=== PATIENT | male | born 1955 | race Caucasian/White ===

== ENCOUNTER 2023-04-09 09:30 | Day surgery (SDC) | payer OTHER, SELFPAY ==
--- NOTE | 2023-04-08 12:24 | P.CONAN_ITS ---
Documented by User: Zoila Yeager NP 04/08/23 12:26 HPI - Anesthesia Eval Consult details Narrative: 67yo M for Colonoscopy [facility] Past Medical History Medical History (Updated 04/08/23 @ 12:26 by Zoila Yeager NP) Diabetes Fatty liver GERD (gastroesophageal reflux disease) Hearing loss Helicobacter pylori gastritis HLD (hyperlipidemia) HTN (hypertension) Hypothyroid DELILAH (obstructive sleep apnea) Spinal stenosis Splenic artery aneurysm Surgical History Surgical History (Updated 04/08/23 @ 12:26 by Zoila Yeager NP) Hx of esophagogastroduodenoscopy (~2018) Hx of tonsillectomy (~1969) Meds Allergies Allergy/AdvReac Type Severity Reaction Status Date / Time Penicillins [PENICILLINS] Allergy Unknown UNKNOWN Unverified 08/04/20 18:37 Home Medications Medication Instructions Recorded Confirmed Last Taken Type Zocor 20 mg DAILY 04/08/23 04/08/23 Unknown History levothyroxine 88 mcg tablet mcg 04/08/23 Unknown History lisinopril 20 mg tablet 20 mg PO DAILY 04/08/23 04/08/23 Unknown History metformin 500 mg tablet 250 mg BID 04/08/23 04/08/23 Unknown History Exam Exam Date and Time: April 08, 2023 1224 Assessment and Plan Assessment Anesthesia Assessment: Chart Reviewed Documented by User: Francis Perez MD 04/09/23 09:21 [facility] Past Medical History Medical History (Updated 04/08/23 @ 12:26 by Zoila Yeager NP) Diabetes Fatty liver GERD (gastroesophageal reflux disease) Hearing loss Helicobacter pylori gastritis HLD (hyperlipidemia) HTN (hypertension) Hypothyroid DELILAH (obstructive sleep apnea) Spinal stenosis Splenic artery aneurysm Family History Family history of problems with anesthesia: No Surgical History Surgical History (Updated 04/08/23 @ 12:26 by Zoila Yeager NP) Hx of esophagogastroduodenoscopy (~2018) Hx of tonsillectomy (~1969) History of Problems with Anesthesia: No Meds Allergies Allergy/AdvReac Type Severity Reaction Status Date / Time Penicillins [PENICILLINS] Allergy Unknown UNKNOWN Unverified 08/04/20 18:37 Home Medications Medication Instructions Recorded Confirmed Last Taken Type Zocor 20 mg DAILY 04/08/23 04/08/23 Unknown History levothyroxine 88 mcg tablet mcg 04/08/23 Unknown History lisinopril 20 mg tablet 20 mg PO DAILY 04/08/23 04/08/23 Unknown History metformin 500 mg tablet 250 mg BID 04/08/23 04/08/23 Unknown History Exam Airway Mallampati Class: III TM Dist: >3cm Neck ROM: Limited Heart: rrr Lungs: cta Assessment and Plan Assessment Anesthesia Assessment: Anesthesia Plan Discussed Final Anesthetic Review Family History of Problems with Anesthesia: No History of Problems with Anesthesia: No NPO: Yes ASA Class: III Final Preanesthetic Review: No Changes in Pt Med Stat, Meds/Allgs Chart Reviewed, Consent Obtained/Reviewed and Anes Risks/Benef Reviewed Patient Risk: Intermediate Procedure Risk: Low Anesthetic Plan Anesthetic Plan: MAC: and Agree w/ Assess. and Plan Disposition: Standard PACU
[2023-04-09 10:08] VITALS: BMI 27.0
[2023-04-09 10:24] VITALS: BP 168/114; PULSE 74; RESP 18; TEMP 36.6; O2SAT 96
[2023-04-09 10:42] LABS: Glucose, Whole Blood 130 mg/dL (60-115)
--- NOTE | 2023-04-09 10:51 | PC.NURSE ---
Dr. Perez updated that patient reported that he does not take any of the blood pressure or diabetic medications as prescribed [facility]. [facility] states working with [facility] to find affordable [facility] Dr. Perez updated regarding BP results. Okay to proceed. Patient had vaso-vag response to IV insertion. Post VS 112/74 P 56. Has recovered well.
--- NOTE | 2023-04-09 11:16 | MHC.SHP ---
Pre-Procedural Eval Section A Date of Service: 04/09/23 The patient is an INPATIENT: No Changes since office visit: No Cold of Flu in the past 2 weeks, No New Medical Problems, No Changes in Medication and No Patient answered all questions The History & Physical has been completed within 30 days and I have reviewed it.: Yes Section B Chief Complaint: Encounter for screening for malignant neoplasm Allergies: Allergies Allergy/AdvReac Type Severity Reaction Status Date / Time Penicillins [PENICILLINS] Allergy Unknown UNKNOWN Verified 04/09/23 10:09 Plan I have reviewed the history and physical and performed a pertinent physical examination on my patient. No changes have occurred unless specified. Time Spent With Patient Time: Total time managing care of this patient today ____ minutes.
--- NOTE | 2023-04-09 11:52 | PM.OP ---
Brief Operative Note Date of Service: 04/09/23 Pre-op diagnosis: screening Post-op diagnosis: same Procedure: colonoscopy Surgeon: Mansoor Hwang Anesthesia: MAC Was an Quality Control Lead used for this Procedure?: No Estimated blood loss (mL): 0 Pathology: other Condition: stable Disposition: PACU
[2023-04-09 11:59] VITALS: BP 130/86; PULSE 75; RESP 16; TEMP 36.1; O2SAT 96
--- NOTE | 2023-04-09 12:11 | OP_ITS ---
DATE OF SERVICE: 04/09/2023 SURGEON: Mansoor Hwang MD INDICATIONS: Colon cancer screening and personal history of colon polyps. PREOPERATIVE DIAGNOSIS: POSTOPERATIVE DIAGNOSIS: PROCEDURE PERFORMED: Colonoscopy to the terminal ileum with snare polypectomy and Idania ink injection. ESTIMATED BLOOD LOSS: COMPLICATIONS: ANESTHESIA: Monitored anesthesia care. ASSISTANTS: SPECIMENS: DESCRIPTION OF PROCEDURE: A history and physical was performed. The risks and benefits of the procedure were explained to the patient. Informed consent was obtained. The patient was placed in the left lateral decubitus position. A digital rectal exam was performed and was found to be normal. The Olympus pediatric video colonoscope was introduced into the rectum and advanced to the cecum without difficulty. The cecum was identified by transillumination, palpation, and identification of ileocecal valve,. Examination was performed. The scope was removed. He tolerated the procedure well and was returned to the recovery area in stable condition. FINDINGS: The terminal ileum was normal. The visualized colonic mucosa was normal. The quality of the prep was good. At 20 cm was an 8 mm polyp, which was removed with a hot snare and recovered via suction. At 15 cm was a 12 mm pedunculated polyp, which was removed with a hot snare and recovered via suction. The base of the polyp was marked with a total of 3 cc of Idania ink injected via a scleral therapy needle. Retroflexed examination showed some small internal hemorrhoids. There was mild sigmoid diverticulosis. IMPRESSION: Colon polyps. RECOMMENDATION: Follow up the biopsy results. MD RED Shelby/EMELIA / [id number]
[2023-04-09 12:14] VITALS: BP 137/96; PULSE 78; RESP 16; TEMP 36.1; O2SAT 97
== END 2023-04-09 12:54 | disposition home or self-care (01) ==
PROVIDERS: PCP Physician Assistant Medical; Visit Provider Internal Medicine Gastroenterology
PROC: 0DJD8ZZ Inspection of Lower Intestinal Tract, Via Natural or Artificial Opening Endoscopic (ICD-10-PCS; CPT 45378; principal; 2023-04-09 10:10)
DX: Z12.11 Encounter for screening for malignant neoplasm of colon (principal); Z86.010 Personal history of colon polyps; D12.5 Benign neoplasm of sigmoid colon; D12.7 Benign neoplasm of rectosigmoid junction; K57.30 Diverticulosis of large intestine without perforation or abscess without bleeding; K64.8 Other hemorrhoids; K21.9 Gastro-esophageal reflux disease without esophagitis; I10 Essential (primary) hypertension; E78.5 Hyperlipidemia, unspecified; E11.9 Type 2 diabetes mellitus without complications; E03.9 Hypothyroidism, unspecified; G47.33 Obstructive sleep apnea (adult) (pediatric); H91.90 Unspecified hearing loss, unspecified ear; I72.8 Aneurysm of other specified arteries; R31.9 Hematuria, unspecified; K76.0 Fatty (change of) liver, not elsewhere classified; M48.00 Spinal stenosis, site unspecified; Z87.891 Personal history of nicotine dependence
CPT/HCPCS: 45385; 45381; 82947; 88305

== ENCOUNTER 2023-08-23 08:20 | Inpatient (IN) | payer OTHER, SELFPAY ==
[2023-08-23] VITALS (16 sets, daily range): BP systolic 118–171; BP diastolic 80–109; PULSE 111–135; RESP 16–23; TEMP 36.3–36.9; O2SAT 92–98; BMI 28.5; BMI 24.1
--- NOTE | 2023-08-23 08:34 | ED.GENADULT ---
HPI - General Adult General Chief complaint: General Medical Stated complaint: Vomiting Weak Time Seen by Provider: 08/23/23 08:33 Source: patient and family (patient's ) Mode of arrival: ambulatory Limitations: no limitations History of Present Illness HPI narrative: Patient is a 67 year old assigned male at with a history of diabetes and HTN presenting to the emergency department today with feeling generally unwell. Patient states that for the last 4 days he has felt unwell with nausea, vomiting, and frequent urination. Patient's states that the patient does not take any of his diabetes medication and does not check his sugar. Patient denies any dizziness, lightheadedness, abdominal pain, fever, chills, blurry vision, double vision, loss of vision, chest pain, difficulty breathing, shortness of breath, back pain, night sweats, pain with urination, blood in his urine or stool, syncope or a near syncopal episode, recent trauma or falls, bowel incontinence, bladder incontinence, bowel retention, bladder retention, or any other complaints at this time. Onset (ago): day(s) (4) Severity: moderate Severity scale (1-10): 6 Relieving factors: none Exacerbating factors: none Associated symptoms: nausea/vomiting and weakness Treatments prior to arrival: none Related Data Home Medications Medication Instructions Recorded Confirmed Zocor 20 mg DAILY 04/08/23 04/08/23 levothyroxine 88 mcg tablet mcg 04/08/23 lisinopril 20 mg tablet 20 mg PO DAILY 04/08/23 04/08/23 metformin 500 mg tablet 250 mg BID 04/08/23 04/08/23 Allergies Allergy/AdvReac Type Severity Reaction Status Date / Time Penicillins [PENICILLINS] Allergy Unknown UNKNOWN Verified 04/09/23 10:09 Review of Systems Constitutional: Constitutional: Reports no additional constitutional complaints, Denies chills, Denies fever(s), Denies night sweats and Reports weakness Eyes: Eyes: Reports no additional eye complaints, Denies blurry vision, Denies change in vision, Denies diplopia, Denies eye discharge, Denies loss of vision and Denies eye pain ENT: Denies dizziness Cardiovascular: Cardiovascular: Reports no additional cardiovascular complaints, Denies chest pain, Denies lightheadedness, Denies Loss of Consciousness and Denies dyspnea Respiratory: Respiratory: Reports no additional respiratory complaints and Denies dyspnea Gastrointestinal: Gastrointestinal: Reports no additional gastrointestinal complaints, Denies abdominal pain, Denies melena, Denies hematochezia, Denies change in bowel habits, Denies change in stool character, Reports nausea and Reports vomiting Genitourinary: Genitourinary: Reports no additional male genitourinary complaints, Denies hematuria, Denies oliguria, Denies difficulty urinating, Denies dysuria, Reports urinary frequency, Denies urinary hesitancy, Denies urinary incontinence and Reports urinary urgency Musculoskeletal: Musculoskeletal: Reports no additional musculoskeletal complaints, Denies numbness and Denies tingling Neurologic: Denies dizziness, Denies loss of vision, Denies numbness, Denies tingling and Reports weakness Psychiatric: Psychiatric: Reports no additional psychiatric complaints Endocrine: Endocrine: Reports no additional endocrine complaints Hematologic/Lymphatic: Hematologic/Lymphatic: Reports no additional hematologic/lymphatic complaints Allergic/Immunologic: Allergic/Immunologic: Reports no additional allergic/immunologic complaints PMFSH Past Medical History Attestation statement: The following information was validated with the patient. (all information validated with the patient's ) Source: old records reviewed, obtained from family (patient's provided additional history and confirmed the history provided by the patient.) and nursing notes reviewed Medical History Splenic artery aneurysm Spinal stenosis DELILAH (obstructive sleep apnea) Hearing loss Fatty liver Hypothyroid Diabetes HLD (hyperlipidemia) HTN (hypertension) Helicobacter pylori gastritis GERD (gastroesophageal reflux disease) Surgical History Hx of tonsillectomy (~1970) Hx of esophagogastroduodenoscopy (~2019) Social History Social History Alcohol intake: current Alcohol intake frequency: a few times a month Patient Tobacco Use Status: Former Tobacco user Smoked in Last 30 Days: No Use of substances other than those prescribed or required for medical reasons: Yes Substance Use Type: Marijuana Substance Use Frequency: Occasionally Last Used Substance: Weeks (ago) Advance Directives: No Physical Exam ED Vital Signs: Vital Signs - 24 hr 08/23/23 08:25 08/23/23 08:45 08/23/23 11:13 Temperature 97.3 F 97.7 F 98.4 F Pulse Rate 135 H 125 H 126 H Respiratory Rate 18 20 20 Blood Pressure 159/109 H 171/108 H 136/87 Pulse Oximetry 96 96 Oxygen Delivery Method Room Air Room Air Room Air 08/23/23 12:06 Temperature Pulse Rate 127 H Respiratory Rate 23 H Blood Pressure 147/93 H Pulse Oximetry 97 Oxygen Delivery Method Room Air BMI result Body Mass Index 28.5 Const General: cooperative, no acute distress, alert and awake Nutritional Appearance: well nourished Orientation/consciousness: patient oriented x3 Limitations: no limitations HENMT Head: Yes normal to inspection and Yes atraumatic Ears: hearing grossly normal bilaterally and external ears normal General nose exam: Normal external nose present, no nasal discharge noted and no epistaxis Face and sinus: Yes normal facial exam, No abrasion and No laceration Mouth: Normal oral and palatal mucosa present, no drooling and no muffled voice Eyes General: appearance normal, both eyes and all related structures Periorbital: periorbital findings normal Eyelids: Yes eyelids normal Conjunctivae: conjunctivae normal Pupils: Equal, round and reactive pupils present EOM: EOMs intact bilaterally Neck Neck: Yes normal visual inspection, Yes full ROM and Yes no lymphadenopathy Chest Chest palpation & inspection: normal inspection of the chest Resp Effort & Inspection: normal respiratory effort and able to speak in complete sentences Auscultation: clear to auscultation bilaterally Cardio Rate: tachycardic Rhythm: regular rhythm GI Inspection: Yes normal to inspection Neuro General: patient oriented x3 and moves all extremities Cranial nerves: Yes Equal, round and reactive pupils present Cognition (Neuro): normal cognition Motor exam (neuro): 5/5 motor strength present throughout Sensory Exam: Normal double simultaneous stimulation for sensation Coordination: [id number] test normal Extrem General: Yes normal to inspection, Yes full ROM and Yes capillary refill normal Psych Appearance: grossly normal Mental Status: mental status grossly normal Affect: normal affect Attitude: cooperative Thought process: Normal thought process present Thought content: Normal thought content present Insight: Good insight present (Psych) Medications Administered Generic Name Dose Route Start Last Admin Trade Name Freq PRN Reason Stop Dose Admin Insulin Human Regular 100 unit in 100 mls @ 9 mls/hr 08/23/23 10:15 08/23/23 12:45 Myxredlin IVCONT 3 unit/hr .Q11H7M LEIGH 3 mls/hr Titration Protocol 9 UNIT/HR Sodium Chloride 1,000 mls @ 150 mls/hr 08/23/23 13:00 08/23/23 13:08 Ns IVCONT 150 mls/hr .Q6H40M LEIGH Administration Discontinued Medications Generic Name Dose Route Start Last Admin Trade Name Jill PRN Reason Stop Dose Admin Sodium Chloride 1,000 mls @ 999 mls/hr 08/23/23 08:45 08/23/23 11:55 Ns IV 08/23/23 09:45 Infused .Q1H1M LEIGH Infusion Sodium Chloride 1,000 mls @ 999 mls/hr 08/23/23 08:45 08/23/23 11:56 Ns IV 08/23/23 09:45 Infused .Q1H1M LEIGH Infusion Ondansetron HCl 4 mg 08/23/23 08:34 08/23/23 09:17 Ondansetron Hcl 4 Mg/2 Ml Vial IVPUSH 08/23/23 08:35 4 mg ONCE ONE Administration Medical Decision Making Medical Decision Making MDM Narrative: Patient is a 67 year old assigned male at with a history of DM and HTN presenting to the emergency department today with nausea, vomiting, increased urinary frequency, and feeling generally unwell. Patient's physical exam was as noted in the physical exam portion of this note. Patient's blood work showed a sodium of 128 (adjusted for elevated glucose - 156), potassium of 5.2, anion gap of 39, BUN of 52, CR of 2.66, glucose of 1264, lactic acid of 3.4, magnesium of 3.2, and ALT of 44. Patient's urine showed no acute process. Patient's chest x-ray showed no acute process. Patient's clinical presentation is most consistent with DKA. Patient's clinical presentation is not consistent with sepsis (@1100). Patient was given 2L of NS and started on an insulin drip. I spoke with the papeterie table assembler who agreed to admission. I explained my physical exam findings as well as all test results to the patient and the patient's . I answered all questions asked by the patient and the patient's . Patient and the patient's verbalized agreement and understanding with this treatment plan and admission. Differential Diagnosis Differential Diagnoses: The differential diagnosis associated with the presentation includes DKA Hyperglycemia Hypernatremia Hyperkalemia Admission/Observation Consideration of admission/observation: Escalation of care including admission/observation considered Patient admitted to the ICU. Consult Healthcare Provider Management of the patient was discussed with: Brass Bobbin Winder (spoke with the papeterie table assembler as noted in the MDM Rationale portion of this note.) Lab Data [facility] Lab Attestation statement: I reviewed the patient's lab results. My interpretation of these results are in the MDM Rationale portion of this note. 08/23/23 09:02 08/23/23 12:03 Labs: Lab Results 08/23/23 08/23/23 08/23/23 Range/Units 09:02 09:20 09:41 WBC 10.1 (4.8-10.8) X10*3/uL RBC 5.49 (4.60-5.80) X10*6/uL Hgb 16.9 (14.0-18.0) g/dl Hct 51.4 (42.0-52.0) % MCV 93.6 (80.0-98.0) fL MCH 30.8 (27.0-33.0) pg MCHC 32.9 (31.0-36.0) g/dl RDW 12.9 (11.0-16.0) % Plt Count 297 (160-400) X10*3/uL MPV 11.9 (9.4-12.4) fL Immature Gran % (Auto) 0.5 H (0.0-0.4) % Neut % (Auto) 87.9 H (45-73) % Lymph % (Auto) 8.5 L (20-40) % [place] % (Auto) 2.9 (2-11) % Eos % (Auto) 0.0 (0-4) % Baso % (Auto) 0.2 (0-2) % Lymph # (Auto) 0.9 L (1.2-4.9) X10*3/uL [place] # (Auto) 0.3 (0.1-1.2) X10*3/uL Eos # (Auto) 0.0 (0.0-0.4) X10*3/uL Baso # (Auto) 0.0 (0.0-0.2) X10*3/uL Abs Immat Gran (auto) 0.05 H (0.00-0.03) X10*3/uL Absolute Neuts (auto) 8.9 H (2.0-8.3) x10*3/uL Absolute Nucleated RBC 0.000 (0.0-0.012) X10*3/uL Nucleated RBC % (auto) 0.0 (0.0-0.2) /100WBC PT 11.1 (11.1-13.3) SEC INR 0.9 (0.9-1.1) APTT 22.2 L (26.0-36.4) SEC VBG pH (7.32-7.43) VBG pCO2 mmHg VBG pO2 mmHg VBG HCO3 (22-26) mmol/L VBG O2 Saturation % VBG Base Excess mmol/L Sodium 128 L (135-145) mmol/L Potassium 5.2 H (3.3-5.1) mmol/L Chloride 83 L (96-108) mmol/L Carbon Dioxide 11 L (22-29) mmol/L Anion Gap 39 H (12-20) BUN 52 H (9-16) mg/dL Creatinine 2.66 H (0.5-1.4) mg/dL Estim Creat Clear Calc 33.1 Estimated GFR 24 POC Glucose (60-115) mg/dL Random Glucose 1264 H* (60-115) mg/dL Lactic Acid 3.4 H* (0.5-2.0) mmol/L Lactic Acid F/U @ 2Hr (0.5-2.0) mmol/L Calcium 10.4 H (8.4-10.2) mg/dL Magnesium 3.2 H (1.6-2.6) mg/dL Total Bilirubin 0.8 (0.0-1.0) mg/dL AST 17 (5-37) U/L ALT 44 H (0-40) U/L Alkaline Phosphatase 84 (39-117) U/L Ammonia 48 (13-55) umol/L Troponin I High Sens 3.3 (<3.5-35.0) ng/L Total Protein 9.3 H (6.5-8.0) g/dL Albumin 4.7 (3.5-5.0) g/dL Urine Color Yellow Urine Appearance Clear Urine pH 5.0 (5.0-9.0) Ur Specific [place] >= 1.030 H (1.005-1.025) Urine Protein Negative (Neg-Trace) mg/dL Urine Glucose (UA) >=1000 H (Negative) mg/dL Urine Ketones 40 (Negative) mg/dL Urine Blood Small (1+) H (Negative) Urine Nitrite Negative (Negative) Ur Leukocyte Esterase Negative (Negative) Urine RBC 0-2 (0-2) /HPF Urine WBC 0-5 (0-5) /HPF Ur Squamous Epith Cells 0-2 (0-2) /HPF Urine Bacteria None Seen (None Seen) Hyaline Casts 3-5 (0-2) /LPF Urine Opiates Screen (Not Detect) Urine Fentanyl Screen (Not Detect) Ur Barbiturates Screen (Not Detect) Ur Phencyclidine Scrn (Not Detect) Ur Amphetamines Screen (Not Detect) U Benzodiazepines Scrn (Not Detect) Urine Cocaine Screen (Not Detect) U Marijuana (THC) Screen (Not Detect) Influenza Type A (PCR) NEGATIVE (Negative) Influenza Type B (PCR) NEGATIVE (Negative) RSV RNA Qual (PCR) NEGATIVE (Negative) SARS-CoV-2 RNA (RT-PCR) NEGATIVE (Negative) S. pyogenes GrpA CHERYL Negative (Negative) 08/23/23 08/23/23 08/23/23 Range/Units 09:48 10:22 10:25 WBC (4.8-10.8) X10*3/uL RBC (4.60-5.80) X10*6/uL Hgb (14.0-18.0) g/dl Hct (42.0-52.0) % MCV (80.0-98.0) fL MCH (27.0-33.0) pg MCHC (31.0-36.0) g/dl RDW (11.0-16.0) % Plt Count (160-400) X10*3/uL MPV (9.4-12.4) fL Immature Gran % (Auto) (0.0-0.4) % Neut % (Auto) (45-73) % Lymph % (Auto) (20-40) % [place] % (Auto) (2-11) % Eos % (Auto) (0-4) % Baso % (Auto) (0-2) % Lymph # (Auto) (1.2-4.9) X10*3/uL [place] # (Auto) (0.1-1.2) X10*3/uL Eos # (Auto) (0.0-0.4) X10*3/uL Baso # (Auto) (0.0-0.2) X10*3/uL Abs Immat Gran (auto) (0.00-0.03) X10*3/uL Absolute Neuts (auto) (2.0-8.3) x10*3/uL Absolute Nucleated RBC (0.0-0.012) X10*3/uL Nucleated RBC % (auto) (0.0-0.2) /100WBC PT (11.1-13.3) SEC INR (0.9-1.1) APTT (26.0-36.4) SEC VBG pH 7.23 L (7.32-7.43) VBG pCO2 20 mmHg VBG pO2 103 mmHg VBG HCO3 9 L (22-26) mmol/L VBG O2 Saturation 99.0 % VBG Base Excess -15.6 mmol/L Sodium (135-145) mmol/L Potassium (3.3-5.1) mmol/L Chloride (96-108) mmol/L Carbon Dioxide (22-29) mmol/L Anion Gap (12-20) BUN (9-16) mg/dL Creatinine (0.5-1.4) mg/dL Estim Creat Clear Calc Estimated GFR POC Glucose > 600 H* > 600 H* (60-115) mg/dL Random Glucose (60-115) mg/dL Lactic Acid (0.5-2.0) mmol/L Lactic Acid F/U @ 2Hr (0.5-2.0) mmol/L Calcium (8.4-10.2) mg/dL Magnesium (1.6-2.6) mg/dL Total Bilirubin (0.0-1.0) mg/dL AST (5-37) U/L ALT (0-40) U/L Alkaline Phosphatase (39-117) U/L Ammonia (13-55) umol/L Troponin I High Sens (<3.5-35.0) ng/L Total Protein (6.5-8.0) g/dL Albumin (3.5-5.0) g/dL Urine Color Urine Appearance Urine pH (5.0-9.0) Ur Specific [place] (1.005-1.025) Urine Protein (Neg-Trace) mg/dL Urine Glucose (UA) (Negative) mg/dL Urine Ketones (Negative) mg/dL Urine Blood (Negative) Urine Nitrite (Negative) Ur Leukocyte Esterase (Negative) Urine RBC (0-2) /HPF Urine WBC (0-5) /HPF Ur Squamous Epith Cells (0-2) /HPF Urine Bacteria (None Seen) Hyaline Casts (0-2) /LPF Urine Opiates Screen (Not Detect) Urine Fentanyl Screen (Not Detect) Ur Barbiturates Screen (Not Detect) Ur Phencyclidine Scrn (Not Detect) Ur Amphetamines Screen (Not Detect) U Benzodiazepines Scrn (Not Detect) Urine Cocaine Screen (Not Detect) U Marijuana (THC) Screen (Not Detect) Influenza Type A (PCR) (Negative) Influenza Type B (PCR) (Negative) RSV RNA Qual (PCR) (Negative) SARS-CoV-2 RNA (RT-PCR) (Negative) S. pyogenes GrpA CHERYL (Negative) 08/23/23 08/23/23 08/23/23 Range/Units 11:14 11:30 11:32 WBC (4.8-10.8) X10*3/uL RBC (4.60-5.80) X10*6/uL Hgb (14.0-18.0) g/dl Hct (42.0-52.0) % MCV (80.0-98.0) fL MCH (27.0-33.0) pg MCHC (31.0-36.0) g/dl RDW (11.0-16.0) % Plt Count (160-400) X10*3/uL MPV (9.4-12.4) fL Immature Gran % (Auto) (0.0-0.4) % Neut % (Auto) (45-73) % Lymph % (Auto) (20-40) % [place] % (Auto) (2-11) % Eos % (Auto) (0-4) % Baso % (Auto) (0-2) % Lymph # (Auto) (1.2-4.9) X10*3/uL [place] # (Auto) (0.1-1.2) X10*3/uL Eos # (Auto) (0.0-0.4) X10*3/uL Baso # (Auto) (0.0-0.2) X10*3/uL Abs Immat Gran (auto) (0.00-0.03) X10*3/uL Absolute Neuts (auto) (2.0-8.3) x10*3/uL Absolute Nucleated RBC (0.0-0.012) X10*3/uL Nucleated RBC % (auto) (0.0-0.2) /100WBC PT (11.1-13.3) SEC INR (0.9-1.1) APTT (26.0-36.4) SEC VBG pH (7.32-7.43) VBG pCO2 mmHg VBG pO2 mmHg VBG HCO3 (22-26) mmol/L VBG O2 Saturation % VBG Base Excess mmol/L Sodium (135-145) mmol/L Potassium (3.3-5.1) mmol/L Chloride (96-108) mmol/L Carbon Dioxide (22-29) mmol/L Anion Gap (12-20) BUN (9-16) mg/dL Creatinine (0.5-1.4) mg/dL Estim Creat Clear Calc Estimated GFR POC Glucose > 600 H* > 600 H* (60-115) mg/dL Random Glucose (60-115) mg/dL Lactic Acid (0.5-2.0) mmol/L Lactic Acid F/U @ 2Hr (0.5-2.0) mmol/L Calcium (8.4-10.2) mg/dL Magnesium (1.6-2.6) mg/dL Total Bilirubin (0.0-1.0) mg/dL AST (5-37) U/L ALT (0-40) U/L Alkaline Phosphatase (39-117) U/L Ammonia (13-55) umol/L Troponin I High Sens (<3.5-35.0) ng/L Total Protein (6.5-8.0) g/dL Albumin (3.5-5.0) g/dL Urine Color Urine Appearance Urine pH (5.0-9.0) Ur Specific [place] (1.005-1.025) Urine Protein (Neg-Trace) mg/dL Urine Glucose (UA) (Negative) mg/dL Urine Ketones (Negative) mg/dL Urine Blood (Negative) Urine Nitrite (Negative) Ur Leukocyte Esterase (Negative) Urine RBC (0-2) /HPF Urine WBC (0-5) /HPF Ur Squamous Epith Cells (0-2) /HPF Urine Bacteria (None Seen) Hyaline Casts (0-2) /LPF Urine Opiates Screen Not Detected (Not Detect) Urine Fentanyl Screen Not Detected (Not Detect) Ur Barbiturates Screen Not Detected (Not Detect) Ur Phencyclidine Scrn Not Detected (Not Detect) Ur Amphetamines Screen Not Detected (Not Detect) U Benzodiazepines Scrn Not Detected (Not Detect) Urine Cocaine Screen Not Detected (Not Detect) U Marijuana (THC) Screen POSITIVE H (Not Detect) Influenza Type A (PCR) (Negative) Influenza Type B (PCR) (Negative) RSV RNA Qual (PCR) (Negative) SARS-CoV-2 RNA (RT-PCR) (Negative) S. pyogenes GrpA CHERYL (Negative) 08/23/23 08/23/23 Range/Units 11:40 12:03 WBC (4.8-10.8) X10*3/uL RBC (4.60-5.80) X10*6/uL Hgb (14.0-18.0) g/dl Hct (42.0-52.0) % MCV (80.0-98.0) fL MCH (27.0-33.0) pg MCHC (31.0-36.0) g/dl RDW (11.0-16.0) % Plt Count (160-400) X10*3/uL MPV (9.4-12.4) fL Immature Gran % (Auto) (0.0-0.4) % Neut % (Auto) (45-73) % Lymph % (Auto) (20-40) % [place] % (Auto) (2-11) % Eos % (Auto) (0-4) % Baso % (Auto) (0-2) % Lymph # (Auto) (1.2-4.9) X10*3/uL [place] # (Auto) (0.1-1.2) X10*3/uL Eos # (Auto) (0.0-0.4) X10*3/uL Baso # (Auto) (0.0-0.2) X10*3/uL Abs Immat Gran (auto) (0.00-0.03) X10*3/uL Absolute Neuts (auto) (2.0-8.3) x10*3/uL Absolute Nucleated RBC (0.0-0.012) X10*3/uL Nucleated RBC % (auto) (0.0-0.2) /100WBC PT (11.1-13.3) SEC INR (0.9-1.1) APTT (26.0-36.4) SEC VBG pH (7.32-7.43) VBG pCO2 mmHg VBG pO2 mmHg VBG HCO3 (22-26) mmol/L VBG O2 Saturation % VBG Base Excess mmol/L Sodium 135 (135-145) mmol/L Potassium 4.3 (3.3-5.1) mmol/L Chloride 96 (96-108) mmol/L Carbon Dioxide 11 L (22-29) mmol/L Anion Gap 32 H (12-20) BUN 51 H (9-16) mg/dL Creatinine 2.34 H (0.5-1.4) mg/dL Estim Creat Clear Calc 37.6 Estimated GFR 28 POC Glucose (60-115) mg/dL Random Glucose 933 H* (60-115) mg/dL Lactic Acid (0.5-2.0) mmol/L Lactic Acid F/U @ 2Hr 2.0 (0.5-2.0) mmol/L Calcium 9.4 D (8.4-10.2) mg/dL Magnesium (1.6-2.6) mg/dL Total Bilirubin (0.0-1.0) mg/dL AST (5-37) U/L ALT (0-40) U/L Alkaline Phosphatase (39-117) U/L Ammonia (13-55) umol/L Troponin I High Sens (<3.5-35.0) ng/L Total Protein (6.5-8.0) g/dL Albumin (3.5-5.0) g/dL Urine Color Urine Appearance Urine pH (5.0-9.0) Ur Specific [place] (1.005-1.025) Urine Protein (Neg-Trace) mg/dL Urine Glucose (UA) (Negative) mg/dL Urine Ketones (Negative) mg/dL Urine Blood (Negative) Urine Nitrite (Negative) Ur Leukocyte Esterase (Negative) Urine RBC (0-2) /HPF Urine WBC (0-5) /HPF Ur Squamous Epith Cells (0-2) /HPF Urine Bacteria (None Seen) Hyaline Casts (0-2) /LPF Urine Opiates Screen (Not Detect) Urine Fentanyl Screen (Not Detect) Ur Barbiturates Screen (Not Detect) Ur Phencyclidine Scrn (Not Detect) Ur Amphetamines Screen (Not Detect) U Benzodiazepines Scrn (Not Detect) Urine Cocaine Screen (Not Detect) U Marijuana (THC) Screen (Not Detect) Influenza Type A (PCR) (Negative) Influenza Type B (PCR) (Negative) RSV RNA Qual (PCR) (Negative) SARS-CoV-2 RNA (RT-PCR) (Negative) S. pyogenes GrpA CHERYL (Negative) Independent Interpretation I performed an independent interpretation of an: Plain X-Ray Interpretation: My interpretation is in agreement with the radiologist's impression of this imaging study. EXAMINATION: XR CHEST CLINICAL INFORMATION: Cough, weakness COMPARISON: None available. TECHNIQUE: 2 views of the chest were obtained. FINDINGS: No airspace consolidation or vascular congestion observed. Minimal linear atelectatic changes observed near the costophrenic angles. No distinct pleural effusions seen. The hilar regions are unremarkable. Thoracic spondylosis and degenerative disc space narrowing observed. XR/XR chest 2V IMPRESSION: No consolidation or congestion seen. Minimal linear atelectatic changes at the bases. Dictated By: Noel Ellis Signed By: Electronically signed by Noel Ellis DD/ [id number] Radiology Impression Discussion of test interpretation with radiology: I have reviewed the radiologist's reading. Independent Historian Clinical information obtained from an independent historian. History obtained from or confirmed by: Spouse (patient's provided additional history and confirmed the history provided by the patient.) Chronic Conditions Patient?s care impacted by: Diabetes (non compliant with medications) and Hypertension (non compliant with medications) Critical Care Time Critical Care Time Critical Care Time: Yes Total Critical Care Time: 60 Attestation: I spent 60 minutes of Critical Care Time with this patient. This does not include time spent on separately reported billable procedures. Discharge Plan Discharge Clinical Impression: Acute hyperglycemia, DKA (diabetic ketoacidosis) Patient Disposition: Admitted As Inpatient
--- NOTE | 2023-08-23 10:13 | MHC.EDTECH ---
Kelly Leon, spouse: [phone]
--- NOTE | 2023-08-23 11:56 | PC.NURSE ---
unable to titrate insulin gtt d/t finger stick POC being >600 reading HI - will require hourly lab draws to obtain accurate blood glucose level. contacted ICU and dr Tello to ? place central line to alleviate repeat lab pokes due to need. awaiting orders at this time
--- NOTE | 2023-08-23 12:12 | PC.NURSE ---
VO from ICU 'draw blood glucose lab per protocol, drop the insulin rate to 6 units from 9 units until results come back this RN and CC Madisyn RN confirmed to drop insulin rate to 6 u /kg/hr then titrate the insuliin gtt from the 6 not the original 9u/kg/hr
--- NOTE | 2023-08-23 12:12 | HO.SKINPHOTO ---
Addendum entered by Jess Martinez RN 08/23/23 12:12: verbal protocol order per manan to drop insulin gtt to 6 u/hr then titrate insulin gtt from 6u/hr until BMP results Original Note: Location: Category: Stage: Length: Width: Depth: cm Location: Category: Stage: Length: Width: Depth: cm Location: Category: Stage: Length: Width: Depth: cm Location: Category: Stage: Length: Width: Depth: cm Location: Category: Stage: Length: Width: Depth: cm Location: Category: Stage: Length: Width: Depth: cm
--- NOTE | 2023-08-23 14:18 | PHA.MEDREC ---
Pharmacy Consult ? Medication Reconciliation [facility]acy [facility]
--- NOTE | 2023-08-23 14:48 | PC.NURSE ---
Patient admitted to ICU 259 @ approx 1440. Patient alert and oriented. Reports not being able to take home meds for > 2 weeks. BMP random glucose pending at this time.
--- NOTE | 2023-08-23 20:45 | PM.CCHP ---
History of Present Illness Date of Service: 08/23/23 Attending physician on admission: Alin Tello Chief Complaint: Weakness 67-year-old actually type 2 diabetic on metformin and a replaced hypothyroid on Synthroid 88 mcg and hypertensive on lisinopril stop taking his medications presents with marked hyperglycemia and a positive anion gap metabolic acidosis with marked ketonuria consistent with diabetic ketoacidosis and has been on aggressive fluid replacement and as well as IV insulin drip and already demonstrating significant improvement in the degree of acidosis as well as hyperglycemia and no apparent precipitating reason other than medication compliance Review of Systems Review of Systems: Yes all other systems are reviewed and are negative [facility] Past Medical History Medical History (Updated 08/23/23 @ 13:27 by AVINASH Watts) Splenic artery aneurysm Spinal stenosis DELILAH (obstructive sleep apnea) Hearing loss Fatty liver Hypothyroid Diabetes HLD (hyperlipidemia) HTN (hypertension) Helicobacter pylori gastritis GERD (gastroesophageal reflux disease) Surgical History Surgical History (Updated 08/23/23 @ 14:24 by Keyshawn Pennington RN) History of appendectomy Hx of tonsillectomy (~1969) Hx of esophagogastroduodenoscopy (~2018) Social History Social History Household Members: Spouse Housing: House Do you presently have visiting nurse or other home services: No Alcohol intake: current Alcohol intake frequency: a few times a month Patient Tobacco Use Status: Former Tobacco user Smoked in Last 30 Days: No Use of substances other than those prescribed or required for medical reasons: Yes Substance Use Type: Marijuana Substance Use Frequency: Occasionally Last Used Substance: Weeks (ago) Currently Displaying Signs/Symptoms of Drug Intoxication Withdrawal: No Have you been hit, kicked, punched, or otherwise hurt by someone within the past year? If so, by whom?: No Do you feel safe in your current relationship?: Yes Is there a partner from a previous relationship who is making you feel unsafe now?: No Are you made to feel afraid or neglected: No Spiritual Healthcare Practices: n/a [facility] Practices: n/a Cultural Healthcare Practices: n/a Advance Directives: No Do you have thoughts of harming others: None Do you have a plan to hurt others: No Plan Recently lost weight without trying: Yes How much weight loss: 2-13 pounds Eating poorly because of decreased appetite: Yes Nutrition screen score: 4 Nutrition Risks: No Nutritional Risk Poor oral hygiene: No Meds Allergies Allergy/AdvReac Type Severity Reaction Status Date / Time Penicillins [PENICILLINS] Allergy Unknown UNKNOWN Verified 04/09/23 10:09 Active Medications: Current Medications Dextrose (Dextrose 50 % 25 Gm/50 Ml Syringe) 25 gm IVPUSH Q30M PRN PRN Reason: BG < 70 Insulin Human Regular (Myxredlin) 100 unit in 100 mls @ 9 mls/hr IVCONT .Q11H7M [facility]; Protocol Last Titration: 08/23/23 19:04 Dose: 6 unit/hr, 6 mls/hr Potassium Chloride/Sodium Chloride (Kcl 20 Meq In 0.9 % Sodium Chl) 20 meq in 1,000 mls @ 100 mls/hr IVCONT .Q10H [facility] Last Admin: 08/23/23 20:09 Dose: 100 mls/hr Sodium Chloride (0.9 % Sodium Chloride Flush 3 Ml Syringe) 3 ml IVFLUSH QSHIFT [facility] Last Admin: 08/23/23 14:37 Dose: 3 ml Home Medications Medication Instructions Recorded Confirmed Last Taken Type levothyroxine 88 mcg tablet 88 mcg PO DAILY 04/08/23 08/23/23 Unknown History lisinopril 20 mg tablet 20 mg PO DAILY 04/08/23 08/23/23 Unknown History metformin 500 mg tablet 250 mg BID 04/08/23 08/23/23 Unknown History acetaminophen 325 mg tablet 650 mg PO Q4H PRN Pain (Scale 08/23/23 08/23/23 Unknown History Score 1-3) aspirin 81 mg tablet,delayed 81 mg PO DAILY 08/23/23 08/23/23 Unknown History release cholecalciferol (vitamin D3) 50 50 mcg PO DAILY 08/23/23 08/23/23 Unknown History mcg (2,000 unit) tablet ibuprofen 600 mg tablet 600 mg PO TID 08/23/23 08/23/23 Unknown History Physical Exam Vital Signs: Vital Signs: Last Vital Signs Temp 97.9 F 08/23/23 16:00 Pulse 117 H 08/23/23 20:00 Resp 20 08/23/23 20:00 BP 145/102 H 08/23/23 20:00 Pulse Ox 94 08/23/23 19:00 O2 Del Method Room Air 08/23/23 20:00 BMI result Body Mass Index 24.1 Awake alert good cognitive function and nonfocal neurologic Good bilateral carotid upstrokes no bruits no neck vein distension no gallops Lungs clear without adventitious sound Abdomen benign no organomegaly No skin wounds no cellulitis no acrocyanosis Results Labs 08/23/23 09:02 08/23/23 23:28 Labs: Laboratory Results - last 24 hr 08/23/23 08/23/23 08/23/23 09:02 09:20 09:41 MCV 93.6 MCH 30.8 MCHC 32.9 RDW 12.9 Plt Count 297 MPV 11.9 Immature Gran % (Auto) 0.5 H Neut % (Auto) 87.9 H Lymph % (Auto) 8.5 L [place] % (Auto) 2.9 Eos % (Auto) 0.0 Baso % (Auto) 0.2 Lymph # (Auto) 0.9 L [place] # (Auto) 0.3 Eos # (Auto) 0.0 Baso # (Auto) 0.0 Abs Immat Gran (auto) 0.05 H Absolute Neuts (auto) 8.9 H Absolute Nucleated RBC 0.000 Nucleated RBC % (auto) 0.0 PT 11.1 INR 0.9 APTT 22.2 L VBG pH VBG pCO2 VBG pO2 VBG HCO3 VBG O2 Saturation VBG Base Excess Anion Gap 39 H Estim Creat Clear Calc 33.1 Estimated GFR 24 POC Glucose Random Glucose 1264 H* Lactic Acid 3.4 H* Lactic Acid F/U @ 2Hr Calcium 10.4 H Magnesium 3.2 H Total Bilirubin 0.8 AST 17 ALT 44 H Alkaline Phosphatase 84 Ammonia 48 Total Protein 9.3 H Albumin 4.7 Urine Color Yellow Urine Appearance Clear Urine pH 5.0 Ur Specific [place] >= 1.030 H Urine Protein Negative Urine Glucose (UA) >=1000 H Urine Ketones 40 Urine Blood Small (1+) H Urine Nitrite Negative Ur Leukocyte Esterase Negative Urine RBC 0-2 Urine WBC 0-5 Ur Squamous Epith Cells 0-2 Urine Bacteria None Seen Hyaline Casts 3-5 Urine Opiates Screen Urine Fentanyl Screen Ur Barbiturates Screen Ur Phencyclidine Scrn Ur Amphetamines Screen U Benzodiazepines Scrn Urine Cocaine Screen U Marijuana (THC) Screen Influenza Type A (PCR) NEGATIVE Influenza Type B (PCR) NEGATIVE RSV RNA Qual (PCR) NEGATIVE SARS-CoV-2 RNA (RT-PCR) NEGATIVE S. pyogenes GrpA CHERYL Negative 08/23/23 08/23/23 08/23/23 09:48 10:22 10:25 MCV MCH MCHC RDW Plt Count MPV Immature Gran % (Auto) Neut % (Auto) Lymph % (Auto) [place] % (Auto) Eos % (Auto) Baso % (Auto) Lymph # (Auto) [place] # (Auto) Eos # (Auto) Baso # (Auto) Abs Immat Gran (auto) Absolute Neuts (auto) Absolute Nucleated RBC Nucleated RBC % (auto) PT INR APTT VBG pH 7.23 L VBG pCO2 20 VBG pO2 103 VBG HCO3 9 L VBG O2 Saturation 99.0 VBG Base Excess -15.6 Anion Gap Estim Creat Clear Calc Estimated GFR POC Glucose > 600 H* > 600 H* Random Glucose Lactic Acid Lactic Acid F/U @ 2Hr Calcium Magnesium Total Bilirubin AST ALT Alkaline Phosphatase Ammonia Total Protein Albumin Urine Color Urine Appearance Urine pH Ur Specific [place] Urine Protein Urine Glucose (UA) Urine Ketones Urine Blood Urine Nitrite Ur Leukocyte Esterase Urine RBC Urine WBC Ur Squamous Epith Cells Urine Bacteria Hyaline Casts Urine Opiates Screen Urine Fentanyl Screen Ur Barbiturates Screen Ur Phencyclidine Scrn Ur Amphetamines Screen U Benzodiazepines Scrn Urine Cocaine Screen U Marijuana (THC) Screen Influenza Type A (PCR) Influenza Type B (PCR) RSV RNA Qual (PCR) SARS-CoV-2 RNA (RT-PCR) S. pyogenes GrpA CHERYL 08/23/23 08/23/23 08/23/23 11:14 11:30 11:32 MCV MCH MCHC RDW Plt Count MPV Immature Gran % (Auto) Neut % (Auto) Lymph % (Auto) [place] % (Auto) Eos % (Auto) Baso % (Auto) Lymph # (Auto) [place] # (Auto) Eos # (Auto) Baso # (Auto) Abs Immat Gran (auto) Absolute Neuts (auto) Absolute Nucleated RBC Nucleated RBC % (auto) PT INR APTT VBG pH VBG pCO2 VBG pO2 VBG HCO3 VBG O2 Saturation VBG Base Excess Anion Gap Estim Creat Clear Calc Estimated GFR POC Glucose > 600 H* > 600 H* Random Glucose Lactic Acid Lactic Acid F/U @ 2Hr Calcium Magnesium Total Bilirubin AST ALT Alkaline Phosphatase Ammonia Total Protein Albumin Urine Color Urine Appearance Urine pH Ur Specific [place] Urine Protein Urine Glucose (UA) Urine Ketones Urine Blood Urine Nitrite Ur Leukocyte Esterase Urine RBC Urine WBC Ur Squamous Epith Cells Urine Bacteria Hyaline Casts Urine Opiates Screen Not Detected Urine Fentanyl Screen Not Detected Ur Barbiturates Screen Not Detected Ur Phencyclidine Scrn Not Detected Ur Amphetamines Screen Not Detected U Benzodiazepines Scrn Not Detected Urine Cocaine Screen Not Detected U Marijuana (THC) Screen POSITIVE H Influenza Type A (PCR) Influenza Type B (PCR) RSV RNA Qual (PCR) SARS-CoV-2 RNA (RT-PCR) S. pyogenes GrpA CHERYL 08/23/23 08/23/23 08/23/23 11:40 12:03 14:01 MCV MCH MCHC RDW Plt Count MPV Immature Gran % (Auto) Neut % (Auto) Lymph % (Auto) [place] % (Auto) Eos % (Auto) Baso % (Auto) Lymph # (Auto) [place] # (Auto) Eos # (Auto) Baso # (Auto) Abs Immat Gran (auto) Absolute Neuts (auto) Absolute Nucleated RBC Nucleated RBC % (auto) PT INR APTT VBG pH VBG pCO2 VBG pO2 VBG HCO3 VBG O2 Saturation VBG Base Excess Anion Gap 32 H Estim Creat Clear Calc 37.6 Estimated GFR 28 POC Glucose > 600 H* Random Glucose 933 H* Lactic Acid Lactic Acid F/U @ 2Hr 2.0 Calcium 9.4 D Magnesium Total Bilirubin AST ALT Alkaline Phosphatase Ammonia Total Protein Albumin Urine Color Urine Appearance Urine pH Ur Specific [place] Urine Protein Urine Glucose (UA) Urine Ketones Urine Blood Urine Nitrite Ur Leukocyte Esterase Urine RBC Urine WBC Ur Squamous Epith Cells Urine Bacteria Hyaline Casts Urine Opiates Screen Urine Fentanyl Screen Ur Barbiturates Screen Ur Phencyclidine Scrn Ur Amphetamines Screen U Benzodiazepines Scrn Urine Cocaine Screen U Marijuana (THC) Screen Influenza Type A (PCR) Influenza Type B (PCR) RSV RNA Qual (PCR) SARS-CoV-2 RNA (RT-PCR) S. pyogenes GrpA CHERYL 08/23/23 08/23/23 08/23/23 14:05 15:04 15:16 MCV MCH MCHC RDW Plt Count MPV Immature Gran % (Auto) Neut % (Auto) Lymph % (Auto) [place] % (Auto) Eos % (Auto) Baso % (Auto) Lymph # (Auto) [place] # (Auto) Eos # (Auto) Baso # (Auto) Abs Immat Gran (auto) Absolute Neuts (auto) Absolute Nucleated RBC Nucleated RBC % (auto) PT INR APTT VBG pH VBG pCO2 VBG pO2 VBG HCO3 VBG O2 Saturation VBG Base Excess Anion Gap 28 H Estim Creat Clear Calc 37.3 Estimated GFR 28 POC Glucose > 600 H* > 600 H* Random Glucose 766 H* Lactic Acid Lactic Acid F/U @ 2Hr Calcium 9.6 Magnesium Total Bilirubin AST ALT Alkaline Phosphatase Ammonia Total Protein Albumin Urine Color Urine Appearance Urine pH Ur Specific [place] Urine Protein Urine Glucose (UA) Urine Ketones Urine Blood Urine Nitrite Ur Leukocyte Esterase Urine RBC Urine WBC Ur Squamous Epith Cells Urine Bacteria Hyaline Casts Urine Opiates Screen Urine Fentanyl Screen Ur Barbiturates Screen Ur Phencyclidine Scrn Ur Amphetamines Screen U Benzodiazepines Scrn Urine Cocaine Screen U Marijuana (THC) Screen Influenza Type A (PCR) Influenza Type B (PCR) RSV RNA Qual (PCR) SARS-CoV-2 RNA (RT-PCR) S. pyogenes GrpA CHERYL 08/23/23 08/23/23 08/23/23 16:06 16:11 16:19 MCV MCH MCHC RDW Plt Count MPV Immature Gran % (Auto) Neut % (Auto) Lymph % (Auto) [place] % (Auto) Eos % (Auto) Baso % (Auto) Lymph # (Auto) [place] # (Auto) Eos # (Auto) Baso # (Auto) Abs Immat Gran (auto) Absolute Neuts (auto) Absolute Nucleated RBC Nucleated RBC % (auto) PT INR APTT VBG pH 7.40 VBG pCO2 24 VBG pO2 158 VBG HCO3 15 L VBG O2 Saturation 99.0 VBG Base Excess -6.7 Anion Gap 23 H Estim Creat Clear Calc 44.1 Estimated GFR 37 POC Glucose 555 H* Random Glucose 618 H* Lactic Acid Lactic Acid F/U @ 2Hr Calcium 9.8 Magnesium 2.9 H Total Bilirubin AST ALT Alkaline Phosphatase Ammonia Total Protein Albumin Urine Color Urine Appearance Urine pH Ur Specific [place] Urine Protein Urine Glucose (UA) Urine Ketones Urine Blood Urine Nitrite Ur Leukocyte Esterase Urine RBC Urine WBC Ur Squamous Epith Cells Urine Bacteria Hyaline Casts Urine Opiates Screen Urine Fentanyl Screen Ur Barbiturates Screen Ur Phencyclidine Scrn Ur Amphetamines Screen U Benzodiazepines Scrn Urine Cocaine Screen U Marijuana (THC) Screen Influenza Type A (PCR) Influenza Type B (PCR) RSV RNA Qual (PCR) SARS-CoV-2 RNA (RT-PCR) S. pyogenes GrpA CHERYL 08/23/23 08/23/23 08/23/23 16:59 17:57 18:57 MCV MCH MCHC RDW Plt Count MPV Immature Gran % (Auto) Neut % (Auto) Lymph % (Auto) [place] % (Auto) Eos % (Auto) Baso % (Auto) Lymph # (Auto) [place] # (Auto) Eos # (Auto) Baso # (Auto) Abs Immat Gran (auto) Absolute Neuts (auto) Absolute Nucleated RBC Nucleated RBC % (auto) PT INR APTT VBG pH VBG pCO2 VBG pO2 VBG HCO3 VBG O2 Saturation VBG Base Excess Anion Gap Estim Creat Clear Calc Estimated GFR POC Glucose 482 H* 426 H* 419 H* Random Glucose Lactic Acid Lactic Acid F/U @ 2Hr Calcium Magnesium Total Bilirubin AST ALT Alkaline Phosphatase Ammonia Total Protein Albumin Urine Color Urine Appearance Urine pH Ur Specific [place] Urine Protein Urine Glucose (UA) Urine Ketones Urine Blood Urine Nitrite Ur Leukocyte Esterase Urine RBC Urine WBC Ur Squamous Epith Cells Urine Bacteria Hyaline Casts Urine Opiates Screen Urine Fentanyl Screen Ur Barbiturates Screen Ur Phencyclidine Scrn Ur Amphetamines Screen U Benzodiazepines Scrn Urine Cocaine Screen U Marijuana (THC) Screen Influenza Type A (PCR) Influenza Type B (PCR) RSV RNA Qual (PCR) SARS-CoV-2 RNA (RT-PCR) S. pyogenes GrpA CHERYL 08/23/23 19:57 MCV MCH MCHC RDW Plt Count MPV Immature Gran % (Auto) Neut % (Auto) Lymph % (Auto) [place] % (Auto) Eos % (Auto) Baso % (Auto) Lymph # (Auto) [place] # (Auto) Eos # (Auto) Baso # (Auto) Abs Immat Gran (auto) Absolute Neuts (auto) Absolute Nucleated RBC Nucleated RBC % (auto) PT INR APTT VBG pH VBG pCO2 VBG pO2 VBG HCO3 VBG O2 Saturation VBG Base Excess Anion Gap Estim Creat Clear Calc Estimated GFR POC Glucose 359 H* Random Glucose Lactic Acid Lactic Acid F/U @ 2Hr Calcium Magnesium Total Bilirubin AST ALT Alkaline Phosphatase Ammonia Total Protein Albumin Urine Color Urine Appearance Urine pH Ur Specific [place] Urine Protein Urine Glucose (UA) Urine Ketones Urine Blood Urine Nitrite Ur Leukocyte Esterase Urine RBC Urine WBC Ur Squamous Epith Cells Urine Bacteria Hyaline Casts Urine Opiates Screen Urine Fentanyl Screen Ur Barbiturates Screen Ur Phencyclidine Scrn Ur Amphetamines Screen U Benzodiazepines Scrn Urine Cocaine Screen U Marijuana (THC) Screen Influenza Type A (PCR) Influenza Type B (PCR) RSV RNA Qual (PCR) SARS-CoV-2 RNA (RT-PCR) S. pyogenes GrpA CHERYL Imaging Radiologist's Impressions: Impressions Chest X-Ray 08/23/23 09:31 IMPRESSION: No consolidation or congestion seen. Minimal linear atelectatic changes at the bases. Assessment and Plan (1) DKA (diabetic ketoacidosis): Status: Acute (2) Acute hyperglycemia: Status: Acute Plan Plan is to continue with aggressive fluids modified and the according to the degree of hypernatremia in hyper chlorine Karlene develops and continue with the IV insulin drip until metabolic acidosis is completely resolved and serum bicarbonate is restored to normal and I think we can in initiated diet any time Time Spent With Patient Time: Total time managing care of this patient today 35____ minutes.
[2023-08-24] VITALS (14 sets, daily range): BP systolic 115–154; BP diastolic 79–100; PULSE 85–111; RESP 12–24; TEMP 36–36.8; O2SAT 95–99; BMI 24.5
[2023-08-24 00:36] LABS: Anion Gap 15 (12-20); Blood Urea Nitrogen 42 mg/dL (9-16); Calcium 9.7 mg/dL (8.4-10.2); Carbon Dioxide 21 mmol/L (22-29); Chloride 114 mmol/L (96-108); Creatinine Clr Calc Pharmacy 60.3; Estimated Glomerular Filt Rate 53; Glucose Random 197 mg/dL (60-115); Magnesium 2.7 mg/dL (1.6-2.6); Phosphorus 2.1 mg/dL (2.7-4.5); Potassium 3.5 mmol/L (3.3-5.1); Sodium 146 mmol/L (135-145)
--- NOTE | 2023-08-24 05:37 | PM.CCPN ---
Subjective Subjective Date of Service: 08/24/23 Interval History: 67-year-old male type 2 diabetic on metformin presents with diabetic ketoacidosis and marked hyperglycemia based on not taking his medications Underlying hypertensive with treated obstructive sleep apnea on a home CPAP device which he is utilizing here in the hospital and currently has complete resolution of the anion gap metabolic acidosis with a mild hyperchloremic metabolic acidosis and fluids have been changed accordingly and is tolerating his fluid intake and he has been tolerating his diet and again no infectious precipitating reason for this Critical Care Time (minutes): 30 Physical Exam Vital Signs: Vital Signs: Last Vital Signs Temp 98.0 F 08/24/23 05:00 Pulse 100 08/24/23 05:00 Resp 21 H 08/24/23 05:00 BP 137/92 H 08/24/23 05:00 Pulse Ox 96 08/24/23 05:00 O2 Del Method Room Air 08/24/23 05:00 BMI result Body Mass Index 24.1 137/92 with saturation of 97% and normal sinus rhythm rate 99 a marked improvement over his presentation and lab work indicating good metabolic resolution Neurologically intact Cardiovascular exam with quiet precordium no gallops no neck vein distension Lungs clear Abdomen soft and nontender with no organomegaly Skin intact Objective Data Labs 08/23/23 09:02 08/23/23 23:28 Labs: Laboratory Results - last 24 hr 08/23/23 08/23/23 08/23/23 09:02 09:20 09:41 WBC 10.1 RBC 5.49 Hgb 16.9 Hct 51.4 MCV 93.6 MCH 30.8 MCHC 32.9 RDW 12.9 Plt Count 297 MPV 11.9 Immature Gran % (Auto) 0.5 H Neut % (Auto) 87.9 H Lymph % (Auto) 8.5 L [place] % (Auto) 2.9 Eos % (Auto) 0.0 Baso % (Auto) 0.2 Lymph # (Auto) 0.9 L [place] # (Auto) 0.3 Eos # (Auto) 0.0 Baso # (Auto) 0.0 Abs Immat Gran (auto) 0.05 H Absolute Neuts (auto) 8.9 H Absolute Nucleated RBC 0.000 Nucleated RBC % (auto) 0.0 Hold Purple Top PT 11.1 INR 0.9 APTT 22.2 L VBG pH VBG pCO2 VBG pO2 VBG HCO3 VBG O2 Saturation VBG Base Excess Sodium 128 L Potassium 5.2 H Chloride 83 L Carbon Dioxide 11 L Anion Gap 39 H BUN 52 H Creatinine 2.66 H Estim Creat Clear Calc 33.1 Estimated GFR 24 POC Glucose Random Glucose 1264 H* Lactic Acid 3.4 H* Lactic Acid F/U @ 2Hr Calcium 10.4 H Phosphorus Magnesium 3.2 H Total Bilirubin 0.8 AST 17 ALT 44 H Alkaline Phosphatase 84 Ammonia 48 Troponin I High Sens 3.3 Total Protein 9.3 H Albumin 4.7 Urine Color Yellow Urine Appearance Clear Urine pH 5.0 Ur Specific [place] >= 1.030 H Urine Protein Negative Urine Glucose (UA) >=1000 H Urine Ketones 40 Urine Blood Small (1+) H Urine Nitrite Negative Ur Leukocyte Esterase Negative Urine RBC 0-2 Urine WBC 0-5 Ur Squamous Epith Cells 0-2 Urine Bacteria None Seen Hyaline Casts 3-5 Urine Opiates Screen Urine Fentanyl Screen Ur Barbiturates Screen Ur Phencyclidine Scrn Ur Amphetamines Screen U Benzodiazepines Scrn Urine Cocaine Screen U Marijuana (THC) Screen Influenza Type A (PCR) NEGATIVE Influenza Type B (PCR) NEGATIVE RSV RNA Qual (PCR) NEGATIVE SARS-CoV-2 RNA (RT-PCR) NEGATIVE S. pyogenes GrpA CHERYL Negative 08/23/23 08/23/23 08/23/23 09:48 10:22 10:25 WBC RBC Hgb Hct MCV MCH MCHC RDW Plt Count MPV Immature Gran % (Auto) Neut % (Auto) Lymph % (Auto) [place] % (Auto) Eos % (Auto) Baso % (Auto) Lymph # (Auto) [place] # (Auto) Eos # (Auto) Baso # (Auto) Abs Immat Gran (auto) Absolute Neuts (auto) Absolute Nucleated RBC Nucleated RBC % (auto) Hold Purple Top PT INR APTT VBG pH 7.23 L VBG pCO2 20 VBG pO2 103 VBG HCO3 9 L VBG O2 Saturation 99.0 VBG Base Excess -15.6 Sodium Potassium Chloride Carbon Dioxide Anion Gap BUN Creatinine Estim Creat Clear Calc Estimated GFR POC Glucose > 600 H* > 600 H* Random Glucose Lactic Acid Lactic Acid F/U @ 2Hr Calcium Phosphorus Magnesium Total Bilirubin AST ALT Alkaline Phosphatase Ammonia Troponin I High Sens Total Protein Albumin Urine Color Urine Appearance Urine pH Ur Specific [place] Urine Protein Urine Glucose (UA) Urine Ketones Urine Blood Urine Nitrite Ur Leukocyte Esterase Urine RBC Urine WBC Ur Squamous Epith Cells Urine Bacteria Hyaline Casts Urine Opiates Screen Urine Fentanyl Screen Ur Barbiturates Screen Ur Phencyclidine Scrn Ur Amphetamines Screen U Benzodiazepines Scrn Urine Cocaine Screen U Marijuana (THC) Screen Influenza Type A (PCR) Influenza Type B (PCR) RSV RNA Qual (PCR) SARS-CoV-2 RNA (RT-PCR) S. pyogenes GrpA CHERYL 08/23/23 08/23/23 08/23/23 11:14 11:30 11:32 WBC RBC Hgb Hct MCV MCH MCHC RDW Plt Count MPV Immature Gran % (Auto) Neut % (Auto) Lymph % (Auto) [place] % (Auto) Eos % (Auto) Baso % (Auto) Lymph # (Auto) [place] # (Auto) Eos # (Auto) Baso # (Auto) Abs Immat Gran (auto) Absolute Neuts (auto) Absolute Nucleated RBC Nucleated RBC % (auto) Hold Purple Top PT INR APTT VBG pH VBG pCO2 VBG pO2 VBG HCO3 VBG O2 Saturation VBG Base Excess Sodium Potassium Chloride Carbon Dioxide Anion Gap BUN Creatinine Estim Creat Clear Calc Estimated GFR POC Glucose > 600 H* > 600 H* Random Glucose Lactic Acid Lactic Acid F/U @ 2Hr Calcium Phosphorus Magnesium Total Bilirubin AST ALT Alkaline Phosphatase Ammonia Troponin I High Sens Total Protein Albumin Urine Color Urine Appearance Urine pH Ur Specific [place] Urine Protein Urine Glucose (UA) Urine Ketones Urine Blood Urine Nitrite Ur Leukocyte Esterase Urine RBC Urine WBC Ur Squamous Epith Cells Urine Bacteria Hyaline Casts Urine Opiates Screen Not Detected Urine Fentanyl Screen Not Detected Ur Barbiturates Screen Not Detected Ur Phencyclidine Scrn Not Detected Ur Amphetamines Screen Not Detected U Benzodiazepines Scrn Not Detected Urine Cocaine Screen Not Detected U Marijuana (THC) Screen POSITIVE H Influenza Type A (PCR) Influenza Type B (PCR) RSV RNA Qual (PCR) SARS-CoV-2 RNA (RT-PCR) S. pyogenes GrpA CHERYL 08/23/23 08/23/23 08/23/23 11:40 12:03 14:01 WBC RBC Hgb Hct MCV MCH MCHC RDW Plt Count MPV Immature Gran % (Auto) Neut % (Auto) Lymph % (Auto) [place] % (Auto) Eos % (Auto) Baso % (Auto) Lymph # (Auto) [place] # (Auto) Eos # (Auto) Baso # (Auto) Abs Immat Gran (auto) Absolute Neuts (auto) Absolute Nucleated RBC Nucleated RBC % (auto) Hold Purple Top PT INR APTT VBG pH VBG pCO2 VBG pO2 VBG HCO3 VBG O2 Saturation VBG Base Excess Sodium 135 Potassium 4.3 Chloride 96 Carbon Dioxide 11 L Anion Gap 32 H BUN 51 H Creatinine 2.34 H Estim Creat Clear Calc 37.6 Estimated GFR 28 POC Glucose > 600 H* Random Glucose 933 H* Lactic Acid Lactic Acid F/U @ 2Hr 2.0 Calcium 9.4 D Phosphorus Magnesium Total Bilirubin AST ALT Alkaline Phosphatase Ammonia Troponin I High Sens Total Protein Albumin Urine Color Urine Appearance Urine pH Ur Specific [place] Urine Protein Urine Glucose (UA) Urine Ketones Urine Blood Urine Nitrite Ur Leukocyte Esterase Urine RBC Urine WBC Ur Squamous Epith Cells Urine Bacteria Hyaline Casts Urine Opiates Screen Urine Fentanyl Screen Ur Barbiturates Screen Ur Phencyclidine Scrn Ur Amphetamines Screen U Benzodiazepines Scrn Urine Cocaine Screen U Marijuana (THC) Screen Influenza Type A (PCR) Influenza Type B (PCR) RSV RNA Qual (PCR) SARS-CoV-2 RNA (RT-PCR) S. pyogenes GrpA CHERYL 08/23/23 08/23/23 08/23/23 14:05 15:04 15:16 WBC RBC Hgb Hct MCV MCH MCHC RDW Plt Count MPV Immature Gran % (Auto) Neut % (Auto) Lymph % (Auto) [place] % (Auto) Eos % (Auto) Baso % (Auto) Lymph # (Auto) [place] # (Auto) Eos # (Auto) Baso # (Auto) Abs Immat Gran (auto) Absolute Neuts (auto) Absolute Nucleated RBC Nucleated RBC % (auto) Hold Purple Top PT INR APTT VBG pH VBG pCO2 VBG pO2 VBG HCO3 VBG O2 Saturation VBG Base Excess Sodium 135 Potassium 4.8 Chloride 98 Carbon Dioxide 14 L Anion Gap 28 H BUN 53 H Creatinine 2.36 H Estim Creat Clear Calc 37.3 Estimated GFR 28 POC Glucose > 600 H* > 600 H* Random Glucose 766 H* Lactic Acid Lactic Acid F/U @ 2Hr Calcium 9.6 Phosphorus Magnesium Total Bilirubin AST ALT Alkaline Phosphatase Ammonia Troponin I High Sens Total Protein Albumin Urine Color Urine Appearance Urine pH Ur Specific [place] Urine Protein Urine Glucose (UA) Urine Ketones Urine Blood Urine Nitrite Ur Leukocyte Esterase Urine RBC Urine WBC Ur Squamous Epith Cells Urine Bacteria Hyaline Casts Urine Opiates Screen Urine Fentanyl Screen Ur Barbiturates Screen Ur Phencyclidine Scrn Ur Amphetamines Screen U Benzodiazepines Scrn Urine Cocaine Screen U Marijuana (THC) Screen Influenza Type A (PCR) Influenza Type B (PCR) RSV RNA Qual (PCR) SARS-CoV-2 RNA (RT-PCR) S. pyogenes GrpA CHERYL 08/23/23 08/23/23 08/23/23 16:06 16:11 16:19 WBC RBC Hgb Hct MCV MCH MCHC RDW Plt Count MPV Immature Gran % (Auto) Neut % (Auto) Lymph % (Auto) [place] % (Auto) Eos % (Auto) Baso % (Auto) Lymph # (Auto) [place] # (Auto) Eos # (Auto) Baso # (Auto) Abs Immat Gran (auto) Absolute Neuts (auto) Absolute Nucleated RBC Nucleated RBC % (auto) Hold Purple Top PT INR APTT VBG pH 7.40 VBG pCO2 24 VBG pO2 158 VBG HCO3 15 L VBG O2 Saturation 99.0 VBG Base Excess -6.7 Sodium 140 Potassium 4.0 Chloride 104 Carbon Dioxide 17 L Anion Gap 23 H BUN 52 H Creatinine 1.83 H Estim Creat Clear Calc 44.1 Estimated GFR 37 POC Glucose 555 H* Random Glucose 618 H* Lactic Acid Lactic Acid F/U @ 2Hr Calcium 9.8 Phosphorus Magnesium 2.9 H Total Bilirubin AST ALT Alkaline Phosphatase Ammonia Troponin I High Sens Total Protein Albumin Urine Color Urine Appearance Urine pH Ur Specific [place] Urine Protein Urine Glucose (UA) Urine Ketones Urine Blood Urine Nitrite Ur Leukocyte Esterase Urine RBC Urine WBC Ur Squamous Epith Cells Urine Bacteria Hyaline Casts Urine Opiates Screen Urine Fentanyl Screen Ur Barbiturates Screen Ur Phencyclidine Scrn Ur Amphetamines Screen U Benzodiazepines Scrn Urine Cocaine Screen U Marijuana (THC) Screen Influenza Type A (PCR) Influenza Type B (PCR) RSV RNA Qual (PCR) SARS-CoV-2 RNA (RT-PCR) S. pyogenes GrpA CHERYL 08/23/23 08/23/23 08/23/23 16:59 17:57 18:57 WBC RBC Hgb Hct MCV MCH MCHC RDW Plt Count MPV Immature Gran % (Auto) Neut % (Auto) Lymph % (Auto) [place] % (Auto) Eos % (Auto) Baso % (Auto) Lymph # (Auto) [place] # (Auto) Eos # (Auto) Baso # (Auto) Abs Immat Gran (auto) Absolute Neuts (auto) Absolute Nucleated RBC Nucleated RBC % (auto) Hold Purple Top PT INR APTT VBG pH VBG pCO2 VBG pO2 VBG HCO3 VBG O2 Saturation VBG Base Excess Sodium Potassium Chloride Carbon Dioxide Anion Gap BUN Creatinine Estim Creat Clear Calc Estimated GFR POC Glucose 482 H* 426 H* 419 H* Random Glucose Lactic Acid Lactic Acid F/U @ 2Hr Calcium Phosphorus Magnesium Total Bilirubin AST ALT Alkaline Phosphatase Ammonia Troponin I High Sens Total Protein Albumin Urine Color Urine Appearance Urine pH Ur Specific [place] Urine Protein Urine Glucose (UA) Urine Ketones Urine Blood Urine Nitrite Ur Leukocyte Esterase Urine RBC Urine WBC Ur Squamous Epith Cells Urine Bacteria Hyaline Casts Urine Opiates Screen Urine Fentanyl Screen Ur Barbiturates Screen Ur Phencyclidine Scrn Ur Amphetamines Screen U Benzodiazepines Scrn Urine Cocaine Screen U Marijuana (THC) Screen Influenza Type A (PCR) Influenza Type B (PCR) RSV RNA Qual (PCR) SARS-CoV-2 RNA (RT-PCR) S. pyogenes GrpA CHERYL 08/23/23 08/23/23 08/23/23 19:57 20:56 21:57 WBC RBC Hgb Hct MCV MCH MCHC RDW Plt Count MPV Immature Gran % (Auto) Neut % (Auto) Lymph % (Auto) [place] % (Auto) Eos % (Auto) Baso % (Auto) Lymph # (Auto) [place] # (Auto) Eos # (Auto) Baso # (Auto) Abs Immat Gran (auto) Absolute Neuts (auto) Absolute Nucleated RBC Nucleated RBC % (auto) Hold Purple Top PT INR APTT VBG pH VBG pCO2 VBG pO2 VBG HCO3 VBG O2 Saturation VBG Base Excess Sodium Potassium Chloride Carbon Dioxide Anion Gap BUN Creatinine Estim Creat Clear Calc Estimated GFR POC Glucose 359 H* 294 H 217 H Random Glucose Lactic Acid Lactic Acid F/U @ 2Hr Calcium Phosphorus Magnesium Total Bilirubin AST ALT Alkaline Phosphatase Ammonia Troponin I High Sens Total Protein Albumin Urine Color Urine Appearance Urine pH Ur Specific [place] Urine Protein Urine Glucose (UA) Urine Ketones Urine Blood Urine Nitrite Ur Leukocyte Esterase Urine RBC Urine WBC Ur Squamous Epith Cells Urine Bacteria Hyaline Casts Urine Opiates Screen Urine Fentanyl Screen Ur Barbiturates Screen Ur Phencyclidine Scrn Ur Amphetamines Screen U Benzodiazepines Scrn Urine Cocaine Screen U Marijuana (THC) Screen Influenza Type A (PCR) Influenza Type B (PCR) RSV RNA Qual (PCR) SARS-CoV-2 RNA (RT-PCR) S. pyogenes GrpA CHERYL 08/23/23 08/23/23 08/24/23 23:01 23:28 00:03 WBC RBC Hgb Hct MCV MCH MCHC RDW Plt Count MPV Immature Gran % (Auto) Neut % (Auto) Lymph % (Auto) [place] % (Auto) Eos % (Auto) Baso % (Auto) Lymph # (Auto) [place] # (Auto) Eos # (Auto) Baso # (Auto) Abs Immat Gran (auto) Absolute Neuts (auto) Absolute Nucleated RBC Nucleated RBC % (auto) Hold Purple Top SEE NOTE PT INR APTT VBG pH VBG pCO2 VBG pO2 VBG HCO3 VBG O2 Saturation VBG Base Excess Sodium 146 H Potassium 3.5 Chloride 114 H Carbon Dioxide 21 L Anion Gap 15 BUN 42 H Creatinine 1.34 Estim Creat Clear Calc 60.3 Estimated GFR 53 POC Glucose 197 H 219 H Random Glucose 197 H Lactic Acid Lactic Acid F/U @ 2Hr Calcium 9.7 Phosphorus 2.1 L Magnesium 2.7 H Total Bilirubin AST ALT Alkaline Phosphatase Ammonia Troponin I High Sens Total Protein Albumin Urine Color Urine Appearance Urine pH Ur Specific [place] Urine Protein Urine Glucose (UA) Urine Ketones Urine Blood Urine Nitrite Ur Leukocyte Esterase Urine RBC Urine WBC Ur Squamous Epith Cells Urine Bacteria Hyaline Casts Urine Opiates Screen Urine Fentanyl Screen Ur Barbiturates Screen Ur Phencyclidine Scrn Ur Amphetamines Screen U Benzodiazepines Scrn Urine Cocaine Screen U Marijuana (THC) Screen Influenza Type A (PCR) Influenza Type B (PCR) RSV RNA Qual (PCR) SARS-CoV-2 RNA (RT-PCR) S. pyogenes GrpA CHERYL 08/24/23 08/24/23 08/24/23 00:53 03:12 05:04 WBC RBC Hgb Hct MCV MCH MCHC RDW Plt Count MPV Immature Gran % (Auto) Neut % (Auto) Lymph % (Auto) [place] % (Auto) Eos % (Auto) Baso % (Auto) Lymph # (Auto) [place] # (Auto) Eos # (Auto) Baso # (Auto) Abs Immat Gran (auto) Absolute Neuts (auto) Absolute Nucleated RBC Nucleated RBC % (auto) Hold Purple Top PT INR APTT VBG pH VBG pCO2 VBG pO2 VBG HCO3 VBG O2 Saturation VBG Base Excess Sodium Potassium Chloride Carbon Dioxide Anion Gap BUN Creatinine Estim Creat Clear Calc Estimated GFR POC Glucose 223 H 227 H 201 H Random Glucose Lactic Acid Lactic Acid F/U @ 2Hr Calcium Phosphorus Magnesium Total Bilirubin AST ALT Alkaline Phosphatase Ammonia Troponin I High Sens Total Protein Albumin Urine Color Urine Appearance Urine pH Ur Specific [place] Urine Protein Urine Glucose (UA) Urine Ketones Urine Blood Urine Nitrite Ur Leukocyte Esterase Urine RBC Urine WBC Ur Squamous Epith Cells Urine Bacteria Hyaline Casts Urine Opiates Screen Urine Fentanyl Screen Ur Barbiturates Screen Ur Phencyclidine Scrn Ur Amphetamines Screen U Benzodiazepines Scrn Urine Cocaine Screen U Marijuana (THC) Screen Influenza Type A (PCR) Influenza Type B (PCR) RSV RNA Qual (PCR) SARS-CoV-2 RNA (RT-PCR) S. pyogenes GrpA CHERYL Progress Note: A&P Assessment and plan (1) DKA (diabetic ketoacidosis): Status: Acute (2) Acute hyperglycemia: Status: Acute Plan Plan is to transfer to the floor continue with IV fluids at a more modest rate and then a dose of subcutaneous insulin can be established prior to discharge Quality Stroke Does the patient have a stroke diagnosis?: No VTE Prior VTE?: No VTE Risk Level:: Medical - low VTE Device Contraindication: N/A - Device Ordered VTE Drug Contraindication: Treatment Not Indicated
[2023-08-24 05:41] LABS: Venous Blood Gas Refer to POC result
[2023-08-24 05:58] LABS: MANUAL DIFF FLAG NO
[2023-08-24 06:05] LABS: Basophils Percent Auto 0.1 % (0-2); Eosinophils Percent Auto 0.1 % (0-4); Hematocrit 45.5 % (42.0-52.0); Hemoglobin 15.7 g/dl (14.0-18.0); Imm Gran Abs Auto 0.05 X10*3/uL (0.00-0.03); Imm Gran Pct Auto 0.4 % (0.0-0.4); Lymphocytes Percent Auto 14.2 % (20-40); Mean Corpuscular HGB Conc 34.5 g/dl (31.0-36.0); Mean Corpuscular Hemoglobin 30.3 pg (27.0-33.0); Mean Corpuscular Volume 87.7 fL (80.0-98.0); Mean Platelet Volume 11.2 fL (9.4-12.4); Monocytes Absolute Auto 0.7 X10*3/uL (0.1-1.2); Monocytes Percent Auto 4.7 % (2-11); Neutrophils Absolute Auto 11.4 x10*3/uL (2.0-8.3); Neutrophils Percent Auto 80.5 % (45-73); Platelet Count 259 X10*3/uL (160-400); Red Blood Count 5.19 X10*6/uL (4.60-5.80); Red Cell Distribution Width 12.5 % (11.0-16.0); White Blood Count 14.1 X10*3/uL (4.8-10.8)
[2023-08-24 06:23] LABS: Alanine Aminotransferase 32 U/L (0-40); Albumin Level 3.6 g/dL (3.5-5.0); Alkaline Phosphatase 58 U/L (39-117); Anion Gap 16 (12-20); Aspartate Amino Transferase 23 U/L (5-37); Bilirubin Total 0.7 mg/dL (0.0-1.0); Blood Urea Nitrogen 33 mg/dL (9-16); Carbon Dioxide 20 mmol/L (22-29); Chloride 112 mmol/L (96-108); Creatinine Clr Calc Pharmacy 71.5; Estimated Glomerular Filt Rate > 60; Glucose Random 227 mg/dL (60-115); Magnesium 2.5 mg/dL (1.6-2.6); Phosphorus 2.8 mg/dL (2.7-4.5); Potassium 3.6 mmol/L (3.3-5.1); Sodium 144 mmol/L (135-145); Total Protein 7.2 g/dL (6.5-8.0)
--- NOTE | 2023-08-24 10:01 | MHC.CM.PN ---
CM MET WITH PT AT BEDSIDE IN ICU. ALERT AND ABLE TO PARTICIPATE IN ASSESSMENT. USES CPAP FOR SLEEP ([facility]) INDEPENDENT AND IS EMPLOYED. +HCP (PT BELIEVES HIS HAS COPY AND IS HIS HCP) PCP SHAMEKA DA SILVA AT THE [place] DP: HOME, NO SERVICES ANTICIPATED. [facility] WILL TRANSPORT HOME. CM WILL CONTINUE TO FOLLOW FOR ANY CHANGE IN DC PLAN/NEEDS
[2023-08-25 01:13] VITALS: PULSE 88; O2SAT 98
[2023-08-25 03:56] VITALS: BP 153/89; PULSE 93; RESP 19; TEMP 36.7; O2SAT 96
--- NOTE | 2023-08-25 04:18 | PC.NURSE ---
Around 2am, pt claimed his BiPAP is not delivering enough pressure while he's using it, RT was called and came to check the machine saying it has the right setting, pt still claimed BIPAP is making him uncomfortable, shifted to O2 at 2L/min via NC instead and pt agreed, Dr. Hargrove was updated.
[2023-08-25 05:48] LABS: Hematocrit 41.4 % (42.0-52.0); Hemoglobin 14.2 g/dl (14.0-18.0); Mean Corpuscular HGB Conc 34.3 g/dl (31.0-36.0); Mean Corpuscular Hemoglobin 31.1 pg (27.0-33.0); Mean Corpuscular Volume 90.6 fL (80.0-98.0); Mean Platelet Volume 11.7 fL (9.4-12.4); Platelet Count 194 X10*3/uL (160-400); Red Blood Count 4.57 X10*6/uL (4.60-5.80); Red Cell Distribution Width 12.4 % (11.0-16.0); White Blood Count 9.1 X10*3/uL (4.8-10.8)
[2023-08-25 06:07] LABS: Anion Gap 13 (12-20); Blood Urea Nitrogen 15 mg/dL (9-16); Calcium 8.2 mg/dL (8.4-10.2); Carbon Dioxide 24 mmol/L (22-29); Chloride 103 mmol/L (96-108); Creatinine Clr Calc Pharmacy 104.9; Estimated Glomerular Filt Rate > 60; Glucose Random 332 mg/dL (60-115); Potassium 3.7 mmol/L (3.3-5.1); Sodium 136 mmol/L (135-145)
[2023-08-25 07:28] LABS: Estimated Average Glucose 280 mg/dL; Hemoglobin A1c % 11.4 % (<6.0)
[2023-08-25 08:00] VITALS: BP 146/99; PULSE 94; RESP 18; TEMP 36.5; O2SAT 96
--- NOTE | 2023-08-25 11:40 | HO.PM.IMPN ---
Subjective Subjective Date of Service: 08/25/23 Interval History: Seen and evaluated this morning Feels weak and has no appetite Sugar still running around 300s Review of Systems Review of Systems: Yes all other systems are reviewed and are negative Physical Exam Vital Signs: Vital Signs: Last Vital Signs Temp 97.7 F 08/25/23 08:00 Pulse 94 08/25/23 08:00 Resp 18 08/25/23 08:00 BP 146/99 H 08/25/23 08:00 Pulse Ox 96 08/25/23 08:00 O2 Del Method Room Air 08/25/23 08:00 O2 Flow Rate 2 08/25/23 03:56 BMI result Body Mass Index 24.5 Const: Other: Constitutional : Awake, interactive, not in distress Neck : Normal inspection, Supple Cardiovascular : RRR, no JVP, no lower extremity edema Respiratory : good bilateral air entry, no crackles, wheezes or rhonchi Gastrointestinal: soft, lax, Normal bowel sounds, Non tender Skin : Warm, Dry Neurological : Alert & oriented x3, No focal deficit Objective Data Active Medications Aspirin (Aspirin Enteric Coated 81 Mg Tablet.) 81 mg PO DAILY [facility] Last Admin: 08/25/23 07:53 Dose: 81 mg Documented By: DELILAH Dextrose (Dextrose 50 % 25 Gm/50 Ml Syringe) 25 gm IVPUSH Q30M PRN PRN Reason: BG < 70 Insulin Glargine (Insulin Glargine,Hum.Rec.Anlog 100 Unit/Ml 10 Ml Vial) 22 unit SUBCUT BID [facility] Last Admin: 08/25/23 07:53 Dose: 22 unit Documented By: DELILAH Insulin Human Lispro (Insulin Lispro 100 Unit/Ml 3 Ml Vial) 0 unit SUBCUT QIDACHS [facility]; Protocol Last Admin: 08/25/23 07:53 Dose: 8 unit Documented By: DELILAH Levothyroxine Sodium (Levothyroxine Sodium 88 Mcg Tablet) 88 mcg PO DAILY@0600 [facility] Last Admin: 08/25/23 05:46 Dose: 88 mcg Documented By: STEPHANIE Metformin HCl (Metformin Hcl 500 Mg Tablet) 500 mg PO BIDWM [facility] Last Admin: 08/25/23 07:54 Dose: 500 mg Documented By: DELILAH Ondansetron HCl (Ondansetron Hcl 4 Mg/2 Ml Vial) 4 mg IVPUSH Q8H PRN PRN Reason: Nausea and Vomiting Last Admin: 08/24/23 17:04 Dose: 4 mg Documented By: DELILAH Sodium Chloride (0.9 % Sodium Chloride Flush 3 Ml Syringe) [facility] Last Admin: 08/25/23 07:54 Dose: 3 ml Documented By: DELILAH Labs 08/25/23 04:58 08/25/23 04:58 Labs: Laboratory Results - last 24 hr 08/24/23 08/24/23 08/24/23 11:52 16:04 19:56 MCV MCH MCHC RDW Plt Count MPV Absolute Nucleated RBC Nucleated RBC % (auto) Anion Gap Estim Creat Clear Calc Estimated GFR POC Glucose 407 H* 349 H 321 H Random Glucose Estimat Average Glucose Hemoglobin A1c % Calcium TSH 08/25/23 08/25/23 08/25/23 04:58 07:24 10:55 MCV 90.6 MCH 31.1 MCHC 34.3 RDW 12.4 Plt Count 194 D MPV 11.7 Absolute Nucleated RBC 0.000 Nucleated RBC % (auto) 0.0 Anion Gap 13 Estim Creat Clear Calc 104.9 Estimated GFR > 60 POC Glucose 322 H 339 H Random Glucose 332 H Estimat Average Glucose 280 Hemoglobin A1c % 11.4 H Calcium 8.2 L D TSH 4.50 H Microbiology Microbiology Results: Microbiology 08/23/23 09:02 Blood Culture - Preliminary Blood - Venous No growth after 48 hours. 08/23/23 09:04 Blood Culture - Preliminary Blood - Venous No growth after 48 hours. Assessment and Plan (1) DKA (diabetic ketoacidosis): Status: Acute (2) Acute hyperglycemia: Status: Acute Plan A 67 years old male with PMH of DMII, Hypothyroid, HTN who presents with DKA. DKA 2/2 uncontrolled DMII w hyperglycemia HbA1c 11.5 Lantus 22 units bid today SSI MEtformin Advance diet as tolerated HTN Lisinopril DELILAH CPAP Hypothyroidism Levothyroxine DVT PPx Lovenox The patient will need overnight stay for better control of blood sugar pending safe discharge plan Time Spent With Patient Time: Total time managing care of this patient today ____ minutes. Quality Stroke Does the patient have a stroke diagnosis?: No VTE Prior VTE?: No VTE Risk Level:: Medical - low VTE Device Contraindication: N/A - Device Ordered VTE Drug Contraindication: Treatment Not Indicated
[2023-08-25 15:31] VITALS: BP 163/85; PULSE 93; RESP 16; TEMP 36.4; O2SAT 97
--- NOTE | 2023-08-25 19:15 | PC.NURSE ---
Pt stated this AM he felt like CPAP machine was shutting off at night . RT notified multiple times throughout the shift asked to please check machine before bedtime, shift leader RN aware.
[2023-08-25 19:58] VITALS: BP 133/89; PULSE 107; RESP 16; TEMP 36.3; O2SAT 94
[2023-08-25 21:59] VITALS: RESP 16
[2023-08-26 03:52] VITALS: BP 141/95; PULSE 95; RESP 16; TEMP 36.2; O2SAT 96
[2023-08-26 07:12] VITALS: BP 144/80; PULSE 93; RESP 16; TEMP 36.1; O2SAT 96
--- NOTE | 2023-08-26 12:05 | HO.PM.IMPN ---
Subjective Subjective Date of Service: 08/26/23 Interval History: Seen and evaluated this morning Feels weak and has no appetite Sugar readings improved but still running high Review of Systems Review of Systems: Yes all other systems are reviewed and are negative Physical Exam Vital Signs: Vital Signs: Last Vital Signs Temp 97.0 F 08/26/23 07:12 Pulse 93 08/26/23 07:12 Resp 16 08/26/23 07:12 BP 144/80 H 08/26/23 07:12 Pulse Ox 96 08/26/23 07:12 O2 Del Method Room Air 08/26/23 07:12 O2 Flow Rate 2 08/25/23 03:56 BMI result Body Mass Index 24.5 Const: Other: Constitutional : Awake, interactive, not in distress Neck : Normal inspection, Supple Cardiovascular : RRR, no JVP, no lower extremity edema Respiratory : good bilateral air entry, no crackles, wheezes or rhonchi Gastrointestinal: soft, lax, Normal bowel sounds, Non tender Skin : Warm, Dry Neurological : Alert & oriented x3, No focal deficit Objective Data Active Medications Aspirin (Aspirin Enteric Coated 81 Mg Tablet.) 81 mg PO DAILY [facility] Last Admin: 08/26/23 08:30 Dose: 81 mg Documented By: RONNIE Dextrose (Dextrose 50 % 25 Gm/50 Ml Syringe) 25 gm IVPUSH Q30M PRN PRN Reason: BG < 70 Insulin Glargine (Insulin Glargine,Hum.Rec.Anlog 100 Unit/Ml 10 Ml Vial) 30 unit SUBCUT BID [facility] Last Admin: 08/26/23 08:31 Dose: 30 unit Documented By: RONNIE Insulin Human Lispro (Insulin Lispro 100 Unit/Ml 3 Ml Vial) 0 unit SUBCUT QIDACHS [facility]; Protocol Last Admin: 08/26/23 08:30 Dose: 8 unit Documented By: RONNIE Levothyroxine Sodium (Levothyroxine Sodium 88 Mcg Tablet) 88 mcg PO DAILY@0600 [facility] Last Admin: 08/26/23 06:20 Dose: 88 mcg Documented By: RODDY Metformin HCl (Metformin Hcl 850 Mg Tablet) 850 mg PO BIDWM [facility] Last Admin: 08/26/23 07:52 Dose: 850 mg Documented By: RONNIE Ondansetron HCl (Ondansetron Hcl 4 Mg/2 Ml Vial) 4 mg IVPUSH Q8H PRN PRN Reason: Nausea and Vomiting Last Admin: 08/24/23 17:04 Dose: 4 mg Documented By: DELILAH Sodium Chloride (0.9 % Sodium Chloride Flush 3 Ml Syringe) [facility] Last Admin: 08/26/23 07:52 Dose: 3 ml Documented By: RONNIE Labs 08/25/23 04:58 08/26/23 05:24 Labs: Laboratory Results - last 24 hr 08/25/23 08/25/23 08/26/23 16:20 20:13 05:24 Hold Purple Top SEE NOTE Anion Gap 13 Estim Creat Clear Calc 113.8 Estimated GFR > 60 POC Glucose 329 H 324 H Random Glucose 252 H Calcium 8.3 L 08/26/23 08/26/23 07:18 11:19 Hold Purple Top Anion Gap Estim Creat Clear Calc Estimated GFR POC Glucose 304 H 296 H Random Glucose Calcium Microbiology Microbiology Results: Microbiology 08/23/23 09:02 Blood Culture - Preliminary Blood - Venous No growth after 48 hours. 08/23/23 09:04 Blood Culture - Preliminary Blood - Venous No growth after 48 hours. Assessment and Plan (1) DKA (diabetic ketoacidosis): Status: Acute (2) Acute hyperglycemia: Status: Acute (3) Uncontrolled diabetes mellitus with hyperglycemia: Status: Acute Plan A 67 years old male with PMH of DMII, Hypothyroid, HTN who presents with DKA. DKA 2/2 uncontrolled DMII w hyperglycemia HbA1c 11.5 Increase Lantus to 30 units bid SSI Increase MEtformin to 850 bid Advance diet as tolerated [facility] and send scripts when pharmacy reopen tomorrow HTN Lisinopril DELILAH CPAP Hypothyroidism Levothyroxine DVT PPx Lovenox The patient will need overnight stay for better control of blood sugar pending safe discharge plan Time Spent With Patient Time: Total time managing care of this patient today ____ minutes. Quality Stroke Does the patient have a stroke diagnosis?: No VTE Prior VTE?: No VTE Risk Level:: Medical - low VTE Device Contraindication: N/A - Device Ordered VTE Drug Contraindication: Treatment Not Indicated
[2023-08-26 15:48] VITALS: BP 153/95; PULSE 91; RESP 20; TEMP 37.1; O2SAT 95
[2023-08-26 19:14] VITALS: BP 136/94; PULSE 105; RESP 20; TEMP 37.1; O2SAT 95
[2023-08-26 20:35] VITALS: RESP 20
[2023-08-27 00:22] VITALS: BP 117/72; PULSE 96; RESP 18; TEMP 36.7; O2SAT 98
[2023-08-27 07:13] VITALS: BP 140/91; PULSE 93; RESP 18; TEMP 36.3; O2SAT 94
--- NOTE | 2023-08-27 09:23 | MHC.CM.PN ---
Addendum entered by Bettye Omalley 08/27/23 16:04: YOVANY SPOKE WITH PTS , OLIVER, WHO REPORTS SHE IS AT THE PHARMACY NOW AND THE MEDS ARE READY [facility] HAS INDICATED THEY HAVE AUTH AND CAN SEE THE PT TOMORROW PTS AWARE [facility] WILL CALL HER TO TELL HER WHEN THEY ARE COMING OLIVER REPORTS SHE WILL BE HERE BETWEEN 1700 AND 1730 HOURS TO TRANSPORT PT SHE ALSO EXPRESSED CONCERN THAT PT MAY NOT UNDERSTAND THE MED INSTRUCTIONS, RN WILL REVIEW THEM WHEN SHE IS PRESENT PT WILL DC HOME TODAY WITH [facility] Addendum entered by Bettye Omalley 08/27/23 15:11: YOVANY MET WITH PT TO DISCUSS DC PT REPORTS [facility] AND IS NOT GOING TO BE ABLE TO GET HIS MEDS CM CALLED [facility] AND AFTER BEING PLACED ON HOLD MULTIPLE TIMES AND BEING DISCONNECTED ONCE, YOVANY WAS ABLE TO REACH SOMEONE AT THE PCP OFFICE. PER PCP OFFICE, THE PTS SCRIPTS NEED TO GO TO THE PCP OFFICE ALONG WITH HIS CLINICAL INFO RELATED TO WHY HE NEEDS THESE MEDS INFO WAS FAXED TO THEM AT [phone] WITH MAURY TAYLOR RN, INSTRUCTED. YOVANY HAS NOT RECEIVED A RETURN CALL OF YET YOVANY WAS ALSO INFORMED THEY TYPICALLY HAVE [facility] NEW MEDS AT OTHER PHARMACIES BECAUSE IT IS A LONG PROCESS TO GET THEM THERE, HOWEVER PT HAS SEVERAL NEW MEDICATIONS THAT WOULD BE COSTLY OUT OF POCKET. PER PTS SHE SPOKE TO CLAUDIA AT THE PCP OFFICE WHO WILL TRY TO GET THEM DONE TODAY Addendum entered by Bettye Omalley 08/27/23 13:24: [facility] BEDS AT THE [facility] IS WILLING TO ACCEPT PT PENDING [facility] THEY HAVE BEEN TRYING TO CONTACT THE [facility] OFFICE SINCE REFERRAL WAS SENT HOWEVER HAVE BEEN UNSUCCESSFUL CM DID EXPAND REFERRAL AND [facility] IS ABLE TO ACCEPT HOWEVER THEY HAVE A 24-72 HR DELAY CM AWAITING FURTHER RESPONSES Original Note: PT TO DC HOME TODAY WITH [facility] REFERRAL SENT TO [facility] INCLUDE 234 BEDS AT THE [facility], AWAITING RESPONSE
--- NOTE | 2023-08-27 11:14 | PM.DS ---
DS: Providers Provider Date of Service: 08/27/23 Date of admission: 08/23/23 12:49 Primary care physician: AVINASH Nuñez DS: Diagnosis Discharge Diagnosis (1) DKA (diabetic ketoacidosis): Status: Acute (2) Acute hyperglycemia: Status: Acute (3) Uncontrolled diabetes mellitus with hyperglycemia: Status: Acute (4) Acute hyperkalemia: Status: Acute DS: Summary Hospital Course Hospital Course: Admission note HPI 67-year-old actually type 2 diabetic on metformin and a replaced hypothyroid on Synthroid 88 mcg and hypertensive on lisinopril stop taking his medications presents with marked hyperglycemia and a positive anion gap metabolic acidosis with marked ketonuria consistent with diabetic ketoacidosis and has been on aggressive fluid replacement and as well as IV insulin drip and already demonstrating significant improvement in the degree of acidosis as well as hyperglycemia and no apparent precipitating reason other than medication compliance. Hospital course Admitted to ICU for treatment of DKA with IV fluids, insulin with good response as anion gap closed and he was able to tolerate PO and long acting insulin. His HbA1c 11.5. Increased Lantus to 30 units bid along with SSI and Increased Metformin to 850 bid with fair control over blood sugars. Education was done in hospital and he will be followed at home with [facility] for close monitoring and teaching. advised to record 1 week readings and discuss with PCP for further adjustments of his medications. Start Lantus 30 units twice daily for now Sliding scale humalog insulin with mealtime Metformin increase to 850 mg twice daily Monitor blood sugar 4 times a day for next week and report readings to PCP for further adjustment of Insulin If you develope symptoms of low sugar please come back to the hospital or discuss medications with your PCP. Time Spent with Patient Time attestation: Total time managing care of this patient today ____ minutes. Discharge coordination time: Greater than 30 minutes Quality: Safe Use of Opioids Does Pt have an Active Cancer Diagnosis on the Problem List?: No Quality: Stroke Does the patient have a stroke diagnosis?: No Physical Exam Vital Signs: Vital Signs: Last Vital Signs Temp 97.3 F 08/27/23 07:13 Pulse 93 08/27/23 07:13 Resp 18 08/27/23 07:13 BP 140/91 H 08/27/23 07:13 Pulse Ox 94 08/27/23 07:13 O2 Del Method Room Air 08/27/23 07:13 O2 Flow Rate 2 08/25/23 03:56 BMI result Body Mass Index 24.5 Const: Other: Constitutional : Awake, interactive, not in distress Neck : Normal inspection, Supple Cardiovascular : RRR, no JVP, no lower extremity edema Respiratory : good bilateral air entry, no crackles, wheezes or rhonchi Gastrointestinal: soft, lax, Normal bowel sounds, Non tender Skin : Warm, Dry Neurological : Alert & oriented x3, No focal deficit DS: Data Data Completed and Pending Labs on day of discharge: Laboratory Results - last 24 hr 08/26/23 08/26/23 08/26/23 11:19 16:03 20:32 POC Glucose 296 H 182 H 215 H 08/27/23 07:15 POC Glucose 141 H Preliminary micro results at discharge 08/23/23 09:02 Blood Culture - Preliminary Blood - Venous No growth after 48 hours. 08/23/23 09:04 Blood Culture - Preliminary Blood - Venous No growth after 48 hours. Imaging Chest x-ray: Radiologist's impression: ITS Impressions Chest X-Ray 08/23/23 09:31 IMPRESSION: No consolidation or congestion seen. Minimal linear atelectatic changes at the bases. Discharge Plan Discharge Anticipated Discharge Date/Time: 08/27/23 11:11 Patient Disposition: Home Health Service Discharge Diagnosis: Diabetic ketoacidosis Referrals: Chico Amaya PA [Primary Care Provider] - 1 Week Discharge Medications: New metformin 850 mg Tablet 850 mg PO BIDWM Qty: 60 0RF (DME) FreeStyle Lite Strips Strip See Rx Instructions .ROUTE .MEDSUPPLY Qty: 100 2RF Rx Instructions: QID (DME) lancets Misc See Rx Instructions .ROUTE .MEDSUPPLY Qty: 200 0RF Rx Instructions: 4 times daily (DME) blood-glucose meter [FreeStyle Lite Meter] Kit See Rx Instructions .ROUTE .MEDSUPPLY Qty: 1 0RF Rx Instructions: As directed alcohol swabs Pads, Medicated 1 pad topical QID Qty: 200 1RF (DME) pen needle, diabetic [Pen Needle] 31 gauge x 5/16 needle See Rx Instructions .ROUTE .MEDSUPPLY Qty: 1200 0RF Rx Instructions: As directed insulin lispro [Humalog KwikPen Insulin] 100 unit/mL insulin pen See Protocol subcut USEASDIRECTD Qty: 15 1RF Protocol: Insulin Correction Scale Less than or equal to 110 ---- Give (units): 0 111 to 150 Give (units): 0 151 to 200 Give (units): 2 201 to 250 Give (units): 4 251 to 300 Give (units): 6 301 to 350 Give (units): 8 Greater than 350 Give (units): 10 Call MD if Blood Glucose > : 350 insulin glargine 100 unit/mL (3 mL) insulin pen 30 unit subcut BID Qty: 15 1RF Continued lisinopril 20 mg Tablet 20 mg PO DAILY levothyroxine 88 mcg Tablet 88 mcg PO DAILY acetaminophen 325 mg Tablet 650 mg PO Q4H PRN (Reason: Pain (Scale Score 1-3)) aspirin 81 mg Tablet,Delayed Release (Dr/Ec) 81 mg PO DAILY ibuprofen 600 mg Tablet 600 mg PO TID cholecalciferol (vitamin D3) 50 mcg (2,000 unit) Tablet 50 mcg PO DAILY Discontinued metformin 500 mg Tablet 250 mg BID Discharge Orders: Discharge Order (Routine); Ordered 08/27/23 Ordered By: Zackary Maguire Diet: Diabetic diet Activity on Discharge: As tolerated Stand Alone Forms: Patient Portal Discharge page, Work/School Release Care Plan Goals: Read below Health Concerns: Read below Plan of Treatment: Read below Assessment: Start Lantus 30 units twice daily for now Sliding scale humalog insulin with mealtime Metformin increase to 850 mg twice daily Monitor blood sugar 4 times a day for next week and report readings to PCP for further adjustment of Insulin If you develope symptoms of low sugar please come back to the hospital or discuss medications with your PCP. Patient Instructions: Hypoglycemia in a Person with Diabetes (DC)
--- NOTE | 2023-08-27 11:27 | W.MHC.F2F ---
Service Date Service Date: 08/27/23 Encounter Date of encounter: 08/27/23 Reasons for Services Signs and symptoms assessed: Uncontrolled diabetes on new Insulin Reason for long-term: administration of IV, SQ, or IM injection, diabetic teaching, monitoring of unstable blood sugar and teach disease management Homebound: Leaving the home is medically contraindicated at this time without the asist of a device and/or another person due th the listed conditions above and below. Reason homebound: unable to drive Certification: Based on the above findings, I certify that this patient is confined to the home and needs intermittent long-term care, physical therapy and/or speech therapy, or continues to need occupational therapy. The patient is under my care, and I have initiated the establishment of the plan of care. The patient will be followed by a physician who will periodically review the plan of care. Time Spent With Patient Time: Total time managing care of this patient today ____ minutes.
[2023-08-27 15:25] VITALS: BP 145/88; PULSE 93; RESP 18; TEMP 36.2; O2SAT 96
== END 2023-08-27 18:35 | disposition home health service (06) | DRG 639 ==
LOC: HO.ED 08:34 → HO.EDOVER 12:54 → HO.ICU 13:11 → HO.S3 08-24 13:02
PROVIDERS: Registered Nurse Community Health; Admitting Provider Internal Medicine Cardiovascular Disease; Emergency Provider Emergency Medicine; PCP Physician Assistant Medical; Visit Provider Student in an Organized Health Care Education/Training Program
DX: E11.10 Type 2 diabetes mellitus with ketoacidosis without coma (principal); K76.0 Fatty (change of) liver, not elsewhere classified; E78.5 Hyperlipidemia, unspecified; E03.9 Hypothyroidism, unspecified; G47.33 Obstructive sleep apnea (adult) (pediatric); Z20.822 Contact with and (suspected) exposure to COVID-19; Z87.891 Personal history of nicotine dependence; Z79.4 Long term (current) use of insulin; Z79.82 Long term (current) use of aspirin; Z79.84 Long term (current) use of oral hypoglycemic drugs; Z79.890 Hormone replacement therapy; Z79.899 Other long term (current) drug therapy
CPT/HCPCS: 0241U; 36415; 71046; 80048; 80053; 80307; 81001; 82140; 82803; 82947; 83036; 83605; 83735; 84100; 84443; 84484; 85025; 85027; 85610; 85730; 87040; 87651; 94660; 97161; 99285; J2405

== ENCOUNTER → 2023-08-23 12:49 | Outpatient (BNV) | payer OTHER, SELFPAY | PROVIDERS: Admitting Provider Internal Medicine Cardiovascular Disease; Emergency Provider Emergency Medicine; PCP Physician Assistant Medical; Visit Provider Internal Medicine Cardiovascular Disease | DX: E11.10 Type 2 diabetes mellitus with ketoacidosis without coma (principal); R73.9 Hyperglycemia, unspecified | CPT/HCPCS: 99223; 99233 ==

== ENCOUNTER → 2023-08-23 12:49 | Outpatient (BNV) | payer OTHER, SELFPAY | PROVIDERS: Admitting Provider Internal Medicine Cardiovascular Disease; Emergency Provider Emergency Medicine; PCP Physician Assistant Medical; Visit Provider Student in an Organized Health Care Education/Training Program | DX: E11.10 Type 2 diabetes mellitus with ketoacidosis without coma (principal); E11.65 Type 2 diabetes mellitus with hyperglycemia | CPT/HCPCS: 99232; 99239; G0180 ==